=== PATIENT | male | born 1950 | race Caucasian/White ===

== ENCOUNTER 2017-05-09 21:25 | Inpatient (IN) | payer MEDICARE ==
[~2017-05-09] VITALS: Ht 172.7 cm; Wt 81.8 kg
[2017-05-09] MEDS ORDERED: SODIUM CHLORIDE 0.9% 1L BAG IV* STA (22:20)
--- NOTE | 2017-05-09 22:24 | ERA ---
ER Documentation Chief Complaint Date/Time DATE: 05/09/17 TIME: 22:21 Chief Complaint FEVER WITH CHILLS, DENIES AP OR CP HPI Patient is a 66-year-old male who presents with sudden onset, constant, moderate chills for the last 1-1/2 hours. He reports having mild headache, mild sore throat, and nonproductive cough for the last 2 days. He denies neck stiffness, abdominal pain, dysuria. He denies back pain. He reports mild shortness of breath. ROS All systems reviewed and are negative except as per history of present illness. 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 Social history:Smokes tobacco, denies alcohol History of Surgery: Yes (AAA Repair,L Leg Amputation) Anesthesia Reaction: No Hx Neurological Disorder: No Hx Respiratory Disorders: No Hx Cardiac Disorders: Yes (HTN,AAA) Hx Psychiatric Problems: No Hx Miscellaneous Medical Probl: Yes (DM,Acute Renal Failure) Hx Alcohol Use: No Hx Substance Use: No Hx Tobacco Use: Yes (3-4 sticks/day) Smoking Status: Current every day smoker FmHx Family History: No coronary disease, No diabetes Physical Exam Vitals Vital Signs Date Time Temp Pulse Resp B/P Pulse Ox O2 Delivery O2 Flow Rate FiO2 05/10/17 01:32 95 17 107/71 95 Nasal Cannula 2.0 05/09/17 23:38 Nasal Cannula 2 05/09/17 22:45 Nasal Cannula 2 05/09/17 21:28 100.5 92 22 142/82 98 Physical Exam Const: Alert, no acute distress Head: Atraumatic Eyes: Normal Conjunctiva no pallor, no icterus ENT: Normal External Ears, Nose and Mouth. Mucous membranes Neck: Full range of motion. No meningismus. Resp: Clear to auscultation bilaterally trace rales at left base, no wheeze mild tachypnea Cardio: Tachycardia, regular rhythm, no murmurs Abd: Soft, non tender, non distended. Skin: No petechiae or rashes Back: No midline or flank tenderness Ext: No cyanosis, plus edema right yi, amputation of left leg Neur: Awake and alert, cranial nerves II through XII intact bilaterally, strength and sensation full in 4 extremities. Psych: Normal Mood and Affect Result Diagram: 05/09/175 05/09/17 2215 Results 24 hrs Laboratory Tests Test 05/09/17 22:15 05/09/17 23:15 05/10/17 00:13 White Blood Count 11.110^3/ul Red Blood Count 3.9610^6/ul Hemoglobin 12.1g/dl Hematocrit 37.8% Mean Corpuscular Volume 95.5fl Mean Corpuscular Hemoglobin 30.6pg Mean Corpuscular Hemoglobin Concent 32.0g/dl Red Cell Distribution Width 13.5% Platelet Count 80107^3/UL Mean Platelet Volume 10.7fl Neutrophils % % Segmented Neutrophils % (Manual) 96% Lymphocytes % % Lymphocytes % (Manual) 4% Monocytes % % Eosinophils % % Basophils % % Nucleated Red Blood Cells % 0.0/100WBC Neutrophils # 10^3/ul Absolute Lymphocytes (Manual) 0.410^3/ul Lymphocytes # 10^3/ul Monocytes # 10^3/ul Eosinophils # 10^3/ul Basophils # 10^3/ul Nucleated Red Blood Cells # 10^3/ul Platelet Estimate NORMAL Prothrombin Time 12.9Sec Prothrombin Time Ratio 1.0 INR International Normalized Ratio 0.97 Activated Partial Thromboplast Time 33.8Sec Sodium Level 141mmol/L Potassium Level 3.9mmol/L Chloride Level 109mmol/L Carbon Dioxide Level 22mmol/L Anion Gap 14 Blood Urea Nitrogen 40mg/dl Creatinine 2.44mg/dl Glucose Level 176mg/dl Lactic Acid Level 2.5mmol/L 0.9mmol/L Calcium Level 9.0mg/dl Total Bilirubin 0.2mg/dl Direct Bilirubin 0.00mg/dl Indirect Bilirubin 0.2mg/dl Aspartate Amino Transf (AST/SGOT) 22IU/L Alanine Aminotransferase (ALT/SGPT) 22IU/L Alkaline Phosphatase 102IU/L Troponin I 0.126ng/ml B-Type Natriuretic Peptide 483PG/ML Total Protein 7.9g/dl Albumin 4.0g/dl Globulin 3.90g/dl Albumin/Globulin Ratio 1.02 Urine Color YELLOW Urine Clarity SLIGHTLY CLOUDY Urine pH 5.0 Urine Specific [place] 1.013 Urine Ketones NEGATIVEmg/dL Urine Nitrite NEGATIVEmg/dL Urine Bilirubin NEGATIVEmg/dL Urine Urobilinogen NEGATIVEmg/dL Urine Leukocyte Esterase NEGATIVELeu/ul Urine Microscopic RBC > 182/HPF Urine Microscopic WBC 3/HPF Urine Hemoglobin 3+mg/dL Urine Glucose NEGATIVEmg/dL Urine Total Protein 2+mg/dl Current Medications Medications (Trade) Dose Ordered Sig/Dimitrios Route PRN Reason Start Time Stop Time Status Last Admin Dose Admin Sodium Chloride 2540 ml 2,540 ml BOLUS OVER 2 HOURS STAT IV* 05/09/17 22:20 05/09/17 22:21 DC 05/09/17 23:00 Levofloxacin/ Dextrose (Levaquin 750 Mg/ D5W 150 ml (Pmx)) 150 ml @ 100 mls/hr ONCE ONCE IVPB 05/09/17 22:30 05/09/17 23:59 DC 05/09/17 22:30 Aspirin (Aspirin) 162 mg ONCE ONCE PO 05/10/17 01:00 05/10/17 01:01 DC 05/10/17 01:09 Procedures/MDM EKG read by me: Time 2237, rate 118 Rhythm: Sinus tachycardia [place]: Left axis deviation, left anterior fascicular block Intervals: Normal ST-T waves: no ischemic changes Ectopy: No Q-waves: Anterior Q waves Impression: Sinus tachycardia with LAFB and evidence of prior anterior NV, no ischemia Sepsis MDM: Patient is a 66-year-old male who presents to the ER with acute onset of rigors and fever. He has mild respiratory symptoms but no infiltrate on chest x-ray. An influenza swab was sent. He has tachycardia, leukocytosis, and slightly elevated lactic acid suggestive of sepsis. He has renal insufficiency of unknown duration. I cannot exclude the possibility of acute kidney injury due to sepsis. He has mildly elevated troponin but no chest pain. The patient has known underlying coronary artery disease. There are no ischemic changes on EKG, but his EKG is suggestive of prior NV which is consistent with the patient's history. I suspect that his elevated troponin is related to underlying sepsis and renal insufficiency. The patient was given broad-spectrum antibiotics and IV fluids. Cultures were sent. On exam there are no findings suggestive of source except for trace rales at the left base of the lungs. There are no meningeal signs, no signs of soft tissue infection. Urinalysis was negative. The patient will be admitted for further infectious, renal and cardiac workup. He was given a dose of aspirin. Departure Diagnosis: Primary Impression: Sepsis Qualified Code: A41.9 - Sepsis, due to unspecified organism Additional Impressions: Elevated troponin Hypoxia Acute kidney injury Condition: MADAY Sherman MD May 09, 2017 22:24
[2017-05-09] MEDS ORDERED: LEVOFLOXACIN 750MG/D5W (PMX) 150 ML IVPB ONE (22:30)
[2017-05-09 22:47] LABS: ABNORMAL IP MESSAGE 1; HEMATOCRIT 37.8 % (42.0-52.0); HEMOGLOBIN 12.1 g/dl (14.0-18.0); MEAN CORPUSCULAR HEMOGLOBIN 30.6 pg (29.0-33.0); MEAN CORPUSCULAR VOLUME 95.5 fl (82.0-101.0); MEAN PLATELET VOLUME 10.7 fl (7.4-10.4); PLATELET COUNT 172 10^3/UL (140-415); POSITIVE DIFF @See below; RED BLOOD COUNT 3.96 10^6/ul (4.70-6.10); RED CELL DISTRIBUTION WIDTH 13.5 % (11.5-14.5); WHITE BLOOD COUNT 11.1 10^3/ul (4.8-10.8)
[2017-05-09 22:57] LABS: INR 0.97; PROTIME 12.9 Sec (12.2-14.2)
[2017-05-09 22:58] LABS: PARTIAL THROMBOPLASTIN TIME 33.8 Sec (25.0-35.0)
[2017-05-09 22:59] LABS: ALBUMIN/GLOBULIN RATIO 1.02; BILIRUBIN,INDIRECT 0.2 mg/dl (0-1.1); BILIRUBIN,TOTAL 0.2 mg/dl (0.2-1.3); CREATININE 2.44 mg/dl (0.61-1.24); POTASSIUM 3.9 mmol/L (3.5-5.1); TOTAL PROTEIN 7.9 g/dl (6.1-8.1)
[2017-05-09 23:09] LABS: PLATELET ESTIMATE NORMAL
--- NOTE | 2017-05-09 23:11 | RADRPT ---
PROCEDURE: Portable chest x-ray. CLINICAL INDICATION: 66 years of age, male. Possible sepsis.. TECHNIQUE: Portable AP view of the chest. COMPARISON: None available. FINDINGS: Atherosclerotic calcification and tortuosity of the thoracic aorta. Normal heart size. Mediastinal c ontours are otherwise normal. Decreased lung volumes with bibasilar atelectasis. Negative for evidence of focal lung consolidation . Negative for pleural effusion or pneumothorax. No acute bony abnormality. IMPRESSION: Negative for evidence of an acute chest process. Negative for focal lung consolidation. RPTAT: HCTS Physician Miky Date Time Electronically viewed and signed by Physician Miky on 05/09/2017 23:10 CS/
[2017-05-09 23:20] LABS: TROPONIN-I 0.126 ng/ml (0.00-0.12)
[2017-05-09 23:55] LABS: ADD UMIC YES; UR ASCORBIC ACID NEGATIVE (NEGATIVE); UR BILIRUBIN (Dip) NEGATIVE (NEGATIVE); UR BLOOD (Dip) 3+ mg/dL (NEGATIVE); UR CLARITY SLIGHTLY CLOUDY (CLEAR); UR COLOR YELLOW (YELLOW); UR GLUCOSE (Dip) NEGATIVE (NEGATIVE); UR KETONES (Dip) NEGATIVE (NEGATIVE); UR LEUKOCYTE ESTERASE (Dip) NEGATIVE Leu/ul (NEGATIVE); UR NITRITE (Dip) NEGATIVE (NEGATIVE); UR RBC > 182 /HPF (0-5); UR SPECIFIC GRAVITY (Dip) 1.013 (1.003-1.030); UR TOTAL PROTEIN (Dip) 2+ mg/dl (NEGATIVE); UR UROBILINOGEN (Dip) NEGATIVE (NEGATIVE)
[2017-05-10] VITALS (12 sets, daily range): BP systolic 95–143; BP diastolic 60–81; PULSE 74–86; RESP 18–20; TEMP 97.9; Ht 172.7 cm; Wt 81.8 kg
[2017-05-10] MEDS ORDERED: ASPIRIN 81 MG TAB PO ONE (01:00)
[2017-05-10] MEDS ORDERED: BISACODYL (EC) 5 MG TAB PO PRN (03:00)
[2017-05-10] MEDS ORDERED: morphine 2 MG INJ IV PRN (03:00)
[2017-05-10] MEDS ORDERED: ONDANSETRON 4 MG INJ IV PRN (03:00)
[2017-05-10] MEDS ORDERED: DOCUSATE SODIUM 100 MG CAP PO PRN (03:00)
[2017-05-10] MEDS ORDERED: ACETAMINOPHEN 325 MG TAB PO PRN (03:00)
[2017-05-10] MEDS ORDERED: NACL 0.9% 3 ML SYG IV SCH (03:00)
[2017-05-10 03:44] LABS: CK-MB 1.18 ng/ml (0.0-2.4); TROPONIN-I 0.932 ng/ml (0.00-0.12)
[2017-05-10] MEDS: SOD CHLORIDE 0.9% 1,000 ML IV SCH (05:12)
--- NOTE | 2017-05-10 08:03 | HP ---
Date/Time of Note Date/Time of Note DATE: 05/10/17 TIME: 07:33 Assessment/Plan VTE Prophylaxis VTE Prophylaxis Intervention: SCD's Lines/Catheters IV [facility]ter Type (from [facility]): Peripheral IV Urinary Cath still in place: No Assessment/Plan Chief Complaint/Hosp Course This is a 66-year-old male being admitted to the telemetry floor for: #1 sepsis: Suspected respiratory source. Current time chest x-ray is normal. Started on Levaquin in the ED. Will continue Levaquin. Will await urine and blood cultures. Chest x-ray was within normal values. Continue to monitor for fevers. IV fluid hydration and monitor blood pressure for hypotension. Will check a respiratory viral panel rapid strep #2 elevated troponins: Possibly secondary to underlying chronic kidney disease versus demand ischemia versus cardiac etiology. Patient denies any chest pain at this time. Will trend troponins. If troponins rise will order echocardiogram. EKG at this time does not show any signs of any acute ischemia. Patient is chest pain-free. Will check hemoglobin A1c and lipid. #3 coronary artery disease: Patient has a history of KS in the past and cardiac stents. will need to confirm patient's home medications. #4 Lactic acidosis: Likely secondary to underlying infection. Currently on antibiotics. Will do IV fluid hydration monitor serial lactate #5 chronic kidney disease: We do not have a previous creatinine. At the current time patient is nonoliguric. Will provide IV fluid hydration and monitor kidney function. Will check urine microalbumin. #6 DVT and GI prophylaxis: SCDs, acid ori further treatment strategy will be implemented as per the clinical course Will need to confirm patient's home medications with him in the a.m. Problems: HPI/ROS Admit Date/Time Admit Date/Time May 10, 2017 at 02:45 Hx of Present Illness Chief complaint: Rigors and chills, cough Patient is a 66-year-old male who presents with sudden onset, constant, moderate chills for the last 1-1/2 hours. He reports having mild headache, mild sore throat, and nonproductive cough for the last 2 days. He denies neck stiffness, abdominal pain, dysuria. He denies back pain. He reports mild shortness of breath. Patient denies any chest pain. Allergies: Ampicillin Medications: See [place] [place] Const: As per HPI Eyes : No pain discharge or redness or change in visual acuity ENT: As per HPI Respiratory: As per HPI Cardiovascular: No chest pain, palpitation, PND, or edema GI : no change in appetite, abdominal pain, nausea, vomiting, diarrhea, constipation, or change in the color his stool Genitourinary: No dysuria, hematuria, flank pain , discharge or CVA tenderness Musculoskeletal: No joint pain, back pain, neck pain, restricted range of motion in neck or joints Skin: No rash, bruising or hives Neuro: No headache, dizziness, syncope, seizure, focal weakness Endocrine: No polyuria, polydipsia, temperature intolerance Psych: No hallucination, depression, anxiety or suicidal ideation PMH/Family/Social Past Medical History History of abdominal aortic aneurysm, hypertension, [place], coronary artery disease , embolization of clot from AAA to left leg resulting in him needing left leg amputation Past Surgical History AAA repair, left leg amputation secondary to embolize clot, cardiac stents 4 Family History Significant Family History: hypertension (Family was repeated E came in his ago with a blood level [place] and low blood) Social History Smoking Status: Current every day smoker Exam/Review of Systems Vital Signs Vitals Vital Signs Date Time Temp Pulse Resp B/P Pulse Ox O2 Delivery O2 Flow Rate FiO2 05/10/17 04:49 85 05/10/17 03:38 98.2 20 95/60 96 Nasal Cannula 2.0 Intake and Output 05/09/17 05/09/17 05/10/17 15:00 23:00 07:00 Intake Total 200 ml Balance 200 ml Exam Exam General: Patient is well-developed well-nourished The patient is alert oriented -3 lying comfortably in bed. HEENT: Atraumatic, normocephalic. The pupils are equal, round and reactive. Extraocular motor are intact Neck: Supple with full range of motion. No rigidity or meningismus Chest: Nontender Lungs: Clear to auscultation bilaterally, dry cough Heart: Normal S1-S2, Regular rhythm and rate. No murmur, S3, or S4 Abdomen: Soft , nontender, nondistended , bowel sounds are present. No guarding no rebound tenderness , No masses or organomegaly. 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 CLINICAL INDICATION: 66 years of age, male. Possible sepsis.. TECHNIQUE: Portable AP view of the chest. COMPARISON: None available. FINDINGS: Atherosclerotic calcification and tortuosity of the thoracic aorta. Normal heart size. Mediastinal contours are otherwise normal. Decreased lung volumes with bibasilar atelectasis. Negative for evidence of focal lung consolidation. Negative for pleural effusion or pneumothorax. No acute bony abnormality. IMPRESSION: Negative for evidence of an acute chest process. Negative for focal lung consolidation. RPTAT: HCTS Physician Miky Date Time Electronically viewed and signed by Physician Miky on 05/09/2017 23: 10 CS/ CC: MADAY SOMMERS MD EKG Rhythm: Sinus tachycardia [place]: Left axis deviation, left anterior fascicular block Intervals: Normal ST-T waves: no ischemic changes Ectopy: No Q-waves: Anterior Q waves Impression: Sinus tachycardia with LAFB and evidence of prior anterior KS, no ischemia As per ED physician documentation Labs Result Diagram: 05/09/17221405/09/172214 Medications Medications Current Medications Sodium Chloride (NS) 1,000 ml @ 50 mls/hr Q20H IV Last administered on t 05:12; Admin Dose 50 MLS/HR; Start 05/10/17 at 02:38 Ondansetron HCl (Zofran Inj) 4 mg Q6H PRN IV NAUSEA AND/OR VOMITING; Start at 03:00 Acetaminophen (Tylenol Tab) 650 mg Q6H PRN PO PAIN LEVEL 1-3 OR FEVER; Start at 03:00 Morphine Sulfate (morphine) 2 mg Q4H PRN IV PAIN LEVEL 7-10; Start 05/10/17 at 03:00 Docusate Sodium (Colace) 100 mg Q12H PRN PO CONSTIPATION; Start 05/10/17 at 03: 00 Bisacodyl (Dulcolax) 5 mg DAILY PRN PO CONSTIPATION; Start 05/10/17 at 03:00 Famotidine (Pepcid) 20 mg DAILY PO ; Start 05/10/17 at 09:00 SARA PATINO May 10, 2017 07:46
[2017-05-10] MEDS ORDERED: FAMOTIDINE 20 MG TAB PO SCH ×2 (09:00→21:30)
[2017-05-10 09:28] LABS: CK-MB 2.35 ng/ml (0.0-2.4); TROPONIN-I 1.24 ng/ml (0.00-0.12)
[2017-05-10] MEDS ORDERED: HYDR-3672 PO (11:32)
[2017-05-10] MEDS ORDERED: AMLO-145 PO (11:32)
[2017-05-10] MEDS ORDERED: CARV25TA79 PO (11:32)
[2017-05-10] MEDS ORDERED: ASPI81TA3 PO ×2 (11:32→11:35)
[2017-05-10] MEDS ORDERED: LINA5TAB PO (11:32)
[2017-05-10] MEDS ORDERED: ATOR10TA65 PO (11:32)
[2017-05-10] MEDS ORDERED: PANT40SU PO (11:32)
[2017-05-10] MEDS ORDERED: GABA100C14 PO (11:35)
[2017-05-10] MEDS: GUAIFENESIN/DM 5ML CUP PO PRN ×3 (13:59→23:54)
--- NOTE | 2017-05-10 15:16 | CONS ---
Date/Time of Note Date/Time of Note DATE: 05/10/17 TIME: 14:53 Consultation Date/Type/Reason Admit Date/Time May 10, 2017 at 02:45 Hx of Present Illness Admit Date/Time Admit Date/Time May 10, 2017 at 02:45 Hx of Present Illness Chief complaint : Rigors and chills, cough Patient is a 66-year-old male who presents with sudden onset, constant, moderate chills for the last 1-1/2 hours. He reports having mild headache, mild sore throat, and nonproductive cough for the last 2 days. He denies neck stiffness, abdominal pain, dysuria. He denies back pain. He reports mild shortness of breath. Patient denies any chest pain. Allergies: Ampicillin Medications: See [place]ID [place]IVER Constitutional: As per HPI Eyes : No pain discharge or redness or change in visual acuity ENT: As per HPI Respiratory: As per HPI Cardiovascular: No chest pain, palpitation, PND, or edema GI : no change in appetite, abdominal pain, nausea, vomiting, diarrhea, constipation, or change in the color his stool Genitourinary: No dysuria, hematuria, flank pain , discharge or CVA tenderness Musculoskeletal: No joint pain, back pain, neck pain, restricted range of motion in neck or joints Skin: No rash, bruising or hives Neuro: No headache, dizziness, syncope, seizure, focal weakness Endocrine: No polyuria, polydipsia, temperature intolerance Psych: No hallucination, depression, anxiety or suicidal ideation PMH/Family/Social Past Medical History History of abdominal aortic aneurysm, hypertension, [place], coronary artery disease , embolization of clot from AAA to left leg resulting in ischemia and left leg amputation. Past Surgical History AAA repair, left leg amputation secondary to embolized clot, coronary stents 4. Family History Significant Family History: hypertension Social History Smoking Status: Current every day smoker Exam/Review of Systems Vital Signs Vitals Vital Signs Date Time Temp Pulse Resp B/P Pulse Ox O2 Delivery O2 Flow Rate FiO2 05/10/17 04:49 85 05/10/17 03:38 98.2 20 95/60 96 Nasal Cannula 2.0 Intake and Output 05/09/17 05/09/17 05/10/17 15:00 23:00 07:00 Intake Total 200 ml Balance 200 ml Exam Exam General: Patient is well-developed well-nourished The patient is alert and oriented times 3 lying uncomfortably in bed with mild shivering, sensation of "cold". HEENT: Atraumatic, normocephalic. The pupils are equal, round and reactive. Extraocular motor are intact Neck: Supple with full range of motion. No rigidity or meningismus Chest: Symmetric, Nontender Lungs: Clear to auscultation bilaterally, dry cough Heart: Normal S1-S2, Regular rhythm and rate. No murmur, S3, or S4 Abdomen: Soft , nontender, nondistended , bowel sounds are present. No guarding no rebound tenderness , No masses or organomegaly. 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 Normal heart size. Mediastinal contours are otherwise normal. Decreased lung volumes with bibasilar atelectasis. Negative for evidence of focal lung consolidation. Negative for pleural effusion or pneumothorax. No acute bony abnormality. IMPRESSION: Negative for evidence of an acute chest process. Negative for focal lung consolidation. RPTAT: HCTS EKG Rhythm: Sinus tachycardia [place]: Left axis deviation, left anterior fascicular block Intervals: Normal ST-T waves: no ischemic changes Ectopy: No Q-waves: Anterior Q waves Impression: Sinus tachycardia with LAFB and evidence of prior anterior AR, no ischemia As per ED physician documentation Labs Result Diagram: 05/09/17221405/09/172214 Medications Medications Current Medications Sodium Chloride (NS) 1,000 ml @ 50 mls/hr Q20H IV Last administered on t 05:12; Admin Dose 50 MLS/HR; Start 05/10/17 at 02:38 Ondansetron HCl (Zofran Inj) 4 mg Q6H PRN IV NAUSEA AND/OR VOMITING; Start at 03:00 Acetaminophen (Tylenol Tab) 650 mg Q6H PRN PO PAIN LEVEL 1-3 OR FEVER; Start at 03:00 Morphine Sulfate (morphine) 2 mg Q4H PRN IV PAIN LEVEL 7-10; Start 05/10/17 at 03:00 Docusate Sodium (Colace) 100 mg Q12H PRN PO CONSTIPATION; Start 05/10/17 at 03: 00 Bisacodyl (Dulcolax) 5 mg DAILY PRN PO CONSTIPATION; Start 05/10/17 at 03:00 Famotidine (Pepcid) 20 mg DAILY PO ; Start 05/10/17 at 09:00 Impression: Mildly abnormal troponin can be encountered in the context of several non cardiac acute conditions, including sepsis. EKG and symptoms do not support an acute cardiac diagnosis at this time. Thank you for allowing me to consult on this patient. I will follow up. DUANE ANAYA MD Social History Smoking Status: Current every day smoker Exam/Review of Systems Vital Signs Vitals Vital Signs Date Time Temp Pulse Resp B/P Pulse Ox O2 Delivery O2 Flow Rate FiO2 05/10/17 12:00 77 05/10/17 11:48 97.7 18 143/79 93 05/10/17 08:00 Nasal Cannula 2.0 Intake and Output 05/09/17 05/09/17 05/10/17 15:00 23:00 07:00 Intake Total 200 ml Balance 200 ml Results Result Diagram: 05/09/17 2215 05/09/17 2215 Results 24 hrs Laboratory Tests Test 05/09/17 22:15 05/09/17 23:15 05/10/17 00:13 05/10/17 02:34 White Blood Count 11.1 H Red Blood Count 3.96 L Hemoglobin 12.1 L Hematocrit 37.8 L Mean Corpuscular Volume 95.5 Mean Corpuscular Hemoglobin 30.6 Mean Corpuscular Hemoglobin Concent 32.0 Red Cell Distribution Width 13.5 Platelet Count 172 Mean Platelet Volume 10.7 H Neutrophils % Segmented Neutrophils % (Manual) 96 H Lymphocytes % Lymphocytes % (Manual) 4 L Monocytes % Eosinophils % Basophils % Nucleated Red Blood Cells % 0.0 Neutrophils # Absolute Lymphocytes (Manual) 0.4 L Lymphocytes # Monocytes # Eosinophils # Basophils # Nucleated Red Blood Cells # Platelet Estimate NORMAL Prothrombin Time 12.9 Prothrombin Time Ratio 1.0 INR International Normalized Ratio 0.97 Activated Partial Thromboplast Time 33.8 Sodium Level 141 Potassium Level 3.9 Chloride Level 109 Carbon Dioxide Level 22 Anion Gap 14 Blood Urea Nitrogen 40 H Creatinine 2.44 H Glucose Level 176 Lactic Acid Level 2.5 *H 0.9 0.6 Calcium Level 9.0 Total Bilirubin 0.2 Direct Bilirubin 0.00 Indirect Bilirubin 0.2 Aspartate Amino Transf (AST/SGOT) 22 Alanine Aminotransferase (ALT/SGPT) 22 Alkaline Phosphatase 102 Troponin I 0.126 *H 0.932 *H B-Type Natriuretic Peptide 483 H Total Protein 7.9 Albumin 4.0 Globulin 3.90 H Albumin/Globulin Ratio 1.02 Urine Color YELLOW Urine Clarity SLIGHTLY CLOUDY A Urine pH 5.0 Urine Specific [place] 1.013 Urine Ketones NEGATIVE Urine Nitrite NEGATIVE Urine Bilirubin NEGATIVE Urine Urobilinogen NEGATIVE Urine Leukocyte Esterase NEGATIVE Urine Microscopic RBC > 182 H Urine Microscopic WBC 3 Urine Hemoglobin 3+ H Urine Glucose NEGATIVE Urine Total Protein 2+ H Creatine Kinase 60 Creatine Kinase Index 2.0 Creatinine Kinase MB (Mass) 1.18 Test 05/10/17 08:32 Erythrocyte Sedimentation Rate 47 H Creatine Kinase 79 Creatine Kinase Index 3.0 Creatinine Kinase MB (Mass) 2.35 Troponin I 1.240 *H C-Reactive Protein 6.0 H Medications Medications Current Medications Sodium Chloride (NS) 1,000 ml @ 50 mls/hr Q20H IV Last administered on 05:12; Admin Dose 50 MLS/HR; Start 05/10/17 at 02:38 Ondansetron HCl (Zofran Inj) 4 mg Q6H PRN IV NAUSEA AND/OR VOMITING; Start at 03:00 Acetaminophen (Tylenol Tab) 650 mg Q6H PRN PO PAIN LEVEL 1-3 OR FEVER; Start at 03:00 Morphine Sulfate (morphine) 2 mg Q4H PRN IV PAIN LEVEL 7-10; Start 05/10/17 at 03:00 Docusate Sodium (Colace) 100 mg Q12H PRN PO CONSTIPATION; Start 05/10/17 at 03: 00 Bisacodyl (Dulcolax) 5 mg DAILY PRN PO CONSTIPATION; Start 05/10/17 at 03:00 Famotidine 20 mg 20 mg DAILY PO Last administered on 05/10/17 09:16; Admin Dose 20 MG; Start 05/10/17 at 09:00 Levofloxacin/ Dextrose (Levaquin 750 Mg/ D5W 150 ml (Pmx)) 150 ml @ 100 mls/hr Q48H IVPB ; Start 05/11/17 at 22:00 Guaifenesin/ Dextromethorphan (Robitussin Dm Liquid Cup) 5 ml Q4H PRN PO COUGH Last administered on 05/10/17t 13:59; Admin Dose 5 ML; Start 05/10/17 at 13:30 DUANE ANAYA MD May 10, 2017 15:11
[2017-05-10] MEDS ORDERED: DEXTROSE 50% 50 ML SYRINGE IV PRN ×2 (16:30)
[2017-05-10] MEDS ORDERED: GLUCOSE GEL 15 GRAM TUBE PO PRN ×2 (16:30)
[2017-05-10] MEDS ORDERED: GLUCAGON 1 MG INJ IM PRN (16:30)
[2017-05-10] MEDS ORDERED: GLUCOSE GEL 15 GRAM TUBE BUCCAL PRN (16:30)
--- NOTE | 2017-05-10 17:02 | CONS ---
Date/Time of Note Date/Time of Note DATE: 05/10/17 TIME: 17:01 Assessment/Plan Assessment/Plan Additional Assessment/Plan 1. HARJINDER on CKD due to Sepsis and Cardiorenal syndrome 2. H/o CKD III 3. Chest pain with elevated troponin 4. Coronary artery disease 5. Hypertension Plan : continue current care Expecting Cr improvement with IVF NS at 50 cc/hr Continue IV levaquin to cover for infection, Renally dose all abx pt revisously has a a CKD work up so need for work up at this time will follow up Consultation Date/Type/Reason Admit Date/Time May 10, 2017 at 02:45 Date of Consultation: May 10, 2017 Type of Consultation: NEPHROLOGY Reason for Consultation acute on chronic renal failure, admitted with NSTEMI Referring Provider: CAROLINE KILLIAN NP Hx of Present Illness 66-year-old male who presents with sudden onset, constant, moderate chills for the last 1-1/2 hours. He reports having mild headache, mild sore throat, and nonproductive cough for the last 2 days. He denies neck stiffness, abdominal pain, dysuria. He denies back pain. He reports mild shortness of breath. Patient denies any chest pain.he was noted to have Cr 2.44. Renal has been consulted for Acute on chronic renal failure, Constitutional: no complaints Eyes: no complaints ENT: no complaints Respiratory: cough, pleuritic pain, shortness of breath Cardiovascular: no complaints Gastrointestinal: no complaints Genitourinary: no complaints Musculoskeletal: no complaints Skin: no complaints Neurologic: no complaints Endocrine: no complaints Lymphatic: no complaints Psychological: no complaints Immunologic: no complaints Past Medical History Medical History: hypertension, other (PVD , abdominal aortic aneurysm ) Past Surgical History Past Surgical Hx: other (left below knee amputation ) Family History Significant Family History: no pertinent family hx Social History Alcohol Use: none Smoking Status: Current every day smoker Drug Use: none Exam/Review of Systems Vital Signs Vitals Vital Signs Date Time Temp Pulse Resp B/P Pulse Ox O2 Delivery O2 Flow Rate FiO2 05/10/17 16:07 79 131/75 05/10/17 15:46 98.6 20 96 05/10/17 08:00 Nasal Cannula 2.0 Intake and Output 05/09/17 05/09/17 05/10/17 15:00 23:00 07:00 Intake Total 200 ml Balance 200 ml Exam Constitutional: alert Psych: no complaints Head: normocephalic Eyes: nl conjunctiva ENMT: nl external ears & nose Neck: non-tender, supple Respiratory: clear to auscultation, crackles/rales, diminished breath sounds Cardiovascular: nl pulses, regular rate and rhythm Gastrointestinal: nl liver, spleen, non-tender, soft Musculoskeletal: joint tenderness, swelling Neurological: INTEGRATED CIRCUIT FABRICATOR II-XII intact, nl mental status, nl speech Skin: nl turgor Results Result Diagram: 05/09/17 2215 05/09/17 2215 Results 24 hrs Laboratory Tests Test 05/09/17 22:15 05/09/17 23:15 05/10/17 00:13 05/10/17 02:34 White Blood Count 11.1 H Red Blood Count 3.96 L Hemoglobin 12.1 L Hematocrit 37.8 L Mean Corpuscular Volume 95.5 Mean Corpuscular Hemoglobin 30.6 Mean Corpuscular Hemoglobin Concent 32.0 Red Cell Distribution Width 13.5 Platelet Count 172 Mean Platelet Volume 10.7 H Neutrophils % Segmented Neutrophils % (Manual) 96 H Lymphocytes % Lymphocytes % (Manual) 4 L Monocytes % Eosinophils % Basophils % Nucleated Red Blood Cells % 0.0 Neutrophils # Absolute Lymphocytes (Manual) 0.4 L Lymphocytes # Monocytes # Eosinophils # Basophils # Nucleated Red Blood Cells # Platelet Estimate NORMAL Prothrombin Time 12.9 Prothrombin Time Ratio 1.0 INR International Normalized Ratio 0.97 Activated Partial Thromboplast Time 33.8 Sodium Level 141 Potassium Level 3.9 Chloride Level 109 Carbon Dioxide Level 22 Anion Gap 14 Blood Urea Nitrogen 40 H Creatinine 2.44 H Glucose Level 176 Lactic Acid Level 2.5 *H 0.9 0.6 Calcium Level 9.0 Total Bilirubin 0.2 Direct Bilirubin 0.00 Indirect Bilirubin 0.2 Aspartate Amino Transf (AST/SGOT) 22 Alanine Aminotransferase (ALT/SGPT) 22 Alkaline Phosphatase 102 Troponin I 0.126 *H 0.932 *H B-Type Natriuretic Peptide 483 H Total Protein 7.9 Albumin 4.0 Globulin 3.90 H Albumin/Globulin Ratio 1.02 Urine Color YELLOW Urine Clarity SLIGHTLY CLOUDY A Urine pH 5.0 Urine Specific [place] 1.013 Urine Ketones NEGATIVE Urine Nitrite NEGATIVE Urine Bilirubin NEGATIVE Urine Urobilinogen NEGATIVE Urine Leukocyte Esterase NEGATIVE Urine Microscopic RBC > 182 H Urine Microscopic WBC 3 Urine Hemoglobin 3+ H Urine Glucose NEGATIVE Urine Total Protein 2+ H Creatine Kinase 60 Creatine Kinase Index 2.0 Creatinine Kinase MB (Mass) 1.18 Test 05/10/17 08:32 Erythrocyte Sedimentation Rate 47 H Creatine Kinase 79 Creatine Kinase Index 3.0 Creatinine Kinase MB (Mass) 2.35 Troponin I 1.240 *H C-Reactive Protein 6.0 H Medications Medications Current Medications Sodium Chloride (NS) 1,000 ml @ 50 mls/hr Q20H IV Last administered on 05:12; Admin Dose 50 MLS/HR; Start 05/10/17 at 02:38 Ondansetron HCl (Zofran Inj) 4 mg Q6H PRN IV NAUSEA AND/OR VOMITING; Start at 03:00 Acetaminophen (Tylenol Tab) 650 mg Q6H PRN PO PAIN LEVEL 1-3 OR FEVER; Start at 03:00 Morphine Sulfate (morphine) 2 mg Q4H PRN IV PAIN LEVEL 7-10; Start 05/10/17 at 03:00 Docusate Sodium (Colace) 100 mg Q12H PRN PO CONSTIPATION; Start 05/10/17 at 03: 00 Bisacodyl (Dulcolax) 5 mg DAILY PRN PO CONSTIPATION; Start 05/10/17 at 03:00 Famotidine 20 mg 20 mg DAILY PO Last administered on 05/10/17 09:16; Admin Dose 20 MG; Start 05/10/17 at 09:00 Levofloxacin/ Dextrose (Levaquin 750 Mg/ D5W 150 ml (Pmx)) 150 ml @ 100 mls/hr Q48H IVPB ; Start 05/11/17 at 22:00 Guaifenesin/ Dextromethorphan (Robitussin Dm Liquid Cup) 5 ml Q4H PRN PO COUGH Last administered on 05/10/17 13:59; Admin Dose 5 ML; Start 05/10/17 at 13:30 Heparin Sodium (Porcine) (Heparin (5000 Units/0.5 ml)) 5,000 unit Q8 SC ; Start 05/10/17 at 22:00 Amlodipine Besylate (Norvasc) 5 mg DAILY PO ; Start 05/11/17 at 09:00 Aspirin (Aspirin) 81 mg DAILY PO ; Start 05/11/17 at 09:00 Atorvastatin Calcium (Lipitor) 10 mg QHS PO ; Start 05/10/17 at 21:00 Carvedilol (Coreg) 25 mg BID PO ; Start 05/10/17 at 21:00 Gabapentin (Neurontin) 100 mg QHS PO ; Start 05/10/17 at 21:00 Hydralazine HCl (Apresoline) 50 mg Q8 PO ; Start 05/10/17 at 22:00 Linagliptin (Tradjenta) 5 mg DAILY PO ; Start 05/11/17 at 09:00 Diagnostic Test (Pha) (Accu-Chek) 1 ea 02 XX ; Start 05/11/17 at 02:00 Insulin Glargine (Lantus) 12 unit DAILY@08 SC ; Start 05/11/17 at 08:00 Diagnostic Test (Pha) (Accu-Chek) 1 ea 02 XX ; Start 05/11/17 at 02:00 Miscellaneous Information 1 ea NOTE XX ; Start 05/10/17 at 16:30 Glucose (Glutose) 15 gm Q15M PRN PO DECREASED GLUCOSE; Start 05/10/17 at 16:30 Glucose (Glutose) 22.5 gm Q15M PRN PO DECREASED GLUCOSE; Start 05/10/17 at 16: 30 Dextrose (D50w Syringe) 25 ml Q15M PRN IV DECREASED GLUCOSE; Start 05/10/17 at 16:30 Dextrose (D50w Syringe) 50 ml Q15M PRN IV DECREASED GLUCOSE; Start 05/10/17 at 16:30 Glucagon (Glucagen) 1 mg Q15M PRN IM DECREASED GLUCOSE; Start 05/10/17 at 16:30 Glucose (Glutose) 15 gm Q15M PRN BUCCAL DECREASED GLUCOSE; Start 05/10/17 at 16 :30 PAULO CAROLINA MD May 10, 2017 17:02
[2017-05-10] MEDS: INSULIN ASPART [NOVOLOG] 3 ML PEN SC SCH ×3 (17:27→20:50)
[2017-05-10 18:04] LABS: CK-MB 1.86 ng/ml (0.0-2.4); TROPONIN-I 0.586 ng/ml (0.00-0.12)
[2017-05-10] MEDS: GABAPENTIN 100 MG CAP PO SCH (20:48)
[2017-05-10] MEDS: ATORVASTATIN 10 MG TAB PO SCH (20:48)
[2017-05-10] MEDS ORDERED: AL HYDROX/MG HYDROX/SIMETH 30 ML CUP PO PRN (21:00)
[2017-05-10] MEDS: HEPARIN 5,000 UNIT/0.5 ML VIAL SC SCH (21:14)
[2017-05-11] VITALS (13 sets, daily range): BP systolic 95–133; BP diastolic 54–81; PULSE 71–86; RESP 15–21
[2017-05-11] MEDS: SOD CHLORIDE 0.9% 1,000 ML IV SCH ×2 (01:19→17:32)
[2017-05-11] MEDS: ACCU-CHEK XX SCH ×2 (02:00)
[2017-05-11] MEDS: HEPARIN 5,000 UNIT/0.5 ML VIAL SC SCH ×3 (05:39→21:07)
[2017-05-11 07:14] LABS: BASOPHIL # 0.1 10^3/ul (0.0-0.1); BASOPHILS % 0.5 % (0.0-2.0); EOSINOPHILS # 0.1 10^3/ul (0.0-0.5); HEMATOCRIT 35.8 % (42.0-52.0); HEMOGLOBIN 11.1 g/dl (14.0-18.0); LYMPHOCYTES # 1.5 10^3/ul (0.8-2.9); LYMPHOCYTES % 14.1 % (15.0-51.0); MEAN CORPUSCULAR HEMOGLOBIN 29.7 pg (29.0-33.0); MEAN CORPUSCULAR VOLUME 95.7 fl (82.0-101.0); MEAN PLATELET VOLUME 11.6 fl (7.4-10.4); MONOCYTE # 1.3 10^3/ul (0.3-0.9); MONOCYTES % 12.2 % (0.0-11.0); NEUTROPHIL # 7.7 10^3/ul (1.6-7.5); NEUTROPHILS % 71.8 % (39.0-77.0); PLATELET COUNT 140 10^3/UL (140-415); POSITIVE DIFF @See below; RED BLOOD COUNT 3.74 10^6/ul (4.70-6.10); RED CELL DISTRIBUTION WIDTH 13.6 % (11.5-14.5); WHITE BLOOD COUNT 10.7 10^3/ul (4.8-10.8)
[2017-05-11 07:36] LABS: ALBUMIN 3.3 g/dl (3.3-4.9); ALBUMIN/GLOBULIN RATIO 0.94; BILIRUBIN,INDIRECT 0.1 mg/dl (0-1.1); BILIRUBIN,TOTAL 0.1 mg/dl (0.2-1.3); CALCIUM 8.9 mg/dl (8.4-10.2); CHOL/HDL RATIO 5.3 RATIO; CREATININE 2.19 mg/dl (0.61-1.24); MAGNESIUM 1.7 mg/dl (1.7-2.5); POTASSIUM 4.1 mmol/L (3.5-5.1); TOTAL PROTEIN 6.8 g/dl (6.1-8.1)
[2017-05-11] MEDS: INSULIN GLARGINE [LANtus] 3 ML PEN SC SCH (08:00)
[2017-05-11] MEDS: INSULIN ASPART [NOVOLOG] 3 ML PEN SC SCH ×7 (08:00→21:00)
[2017-05-11] MEDS: ASPIRIN 81 MG TAB PO SCH (08:23)
[2017-05-11] MEDS: AMLODIPINE 5 MG TAB PO SCH (08:24)
[2017-05-11] MEDS: FAMOTIDINE 20 MG TAB PO SCH (08:29)
[2017-05-11] MEDS: LINAGLIPTIN 5 MG TABLET PO SCH (08:30)
[2017-05-11 08:40] LABS: THYROID STIMULATING HORMONE 4.26 MIU/L (0.465-4.680)
--- NOTE | 2017-05-11 14:13 | RADRPT ---
Echocardiogram Report Patient Name: VANDANA SU Gender: Male Date: 1950 Study Date: 10-May-2017 Manager Dish: [facility] Location: 5540 Ref. Physician: SARA PATINO Quality: Adequate Procedures: Transthoracic echocardiogram with complete 2D, M-Mode, and doppler examination. Indications: Elevated Troponin. 2D/M Mode Doppler Measurement Value Normal Ranges Measurement Value Normal Ranges LVIDd 2D 4.9 3.5 - 5.6 cm AV Peak Octavio 1.1 m/sec LVIDs 2D 3.5 2.1 - 4.1 cm AV Peak PG 5.0 mmHg FS 2D 29.2 % LVOT Peak Octavio 0.8 m/sec LVPWd 2D 1.3 0.6 - 1.1 cm LVOT Peak PG 3.0 mmHg IVSd 2D 1.3 0.6 - 1.1 cm MV E Peak Octavio 0.6 m/sec IVS/LVPW 2D 1.0 MV A Peak Octavio 0.8 m/sec AoR Diam 2D 3.3 2.0 - 3.7 cm MV E/A 0.7 LA/Ao 2D 1 0 - 1 MV Decel Time 236 msec EDV 2D 120.0 cm3 MV E/A 0.7 ESV 2D 42.5 cm3 TR Peak Octavio 2.7 m/sec LA Dimen 2D 4.0 2.3 - 4.0 cm TR Peak PG 29.0 mmHg RVSP 32.0 mmHg Findings Left Ventricle: Normal left ventricular systolic function. Normal left ventricular cavity size. Mild concentric left ventricular hypertrophy. Ejection fraction is visually estimated at 65 %. Tissue Doppler/Mitral Doppler indices are within normal limits. Right Ventricle: Normal right ventricular size. Normal right ventricular systolic function. Left Atrium: The left atrium is normal in size. Right Atrium: The right atrium is normal in size. Mitral Valve: Mild mitral leaflet calcification. Mild mitral annular calcification. Trace mitral regurgitation. Aortic Valve: Aortic cusps appear mildly calcified. Aortic valve opens normally. Trace aortic valve regurgitation. Tricuspid Valve: Normal appearance of the tricuspid valve. Estimated peak PA systolic pressure 32 mmHg. There is mild tricuspid regurgitation. Pulmonic Valve: Pulmonic valve not well visualized. There is trace pulmonic regurgitation. Pericardium: Normal pericardium with no significant pericardial effusion. Aorta: Normal aortic root. IVC: Normal size and normal respiratory collapse consistent with normal right atrial pressure. Conclusions 1.Normal left ventricular systolic function. Normal left ventricular cavity size. Mild concentric left ventricular hypertrophy. Ejection fraction is visually estimated at 65 %. Tissue Doppler/Mitral Doppler indices are within normal limits. Electronically Signed By: Vera Dennis 11-May-2017 14:13:00 -0700 Patient Name: VANDANA SU Study Date: 10-May-2017 [id number]
--- NOTE | 2017-05-11 18:34 | CONS ---
Date/Time of Note Date/Time of Note DATE: 05/11/17 TIME: 18:33 Assessment/Plan Assessment/Plan Chief Complaint/Hosp Course 66-year-old male who presents with sudden onset, constant, moderate chills for the last 1-1/2 hours. He reports having mild headache, mild sore throat, and nonproductive cough for the last 2 days. He denies neck stiffness, abdominal pain, dysuria. He denies back pain. He reports mild shortness of breath. Patient denies any chest pain.he was noted to have Cr 2.44. Renal has been consulted for Acute on chronic renal failure, Problems: Additional Assessment/Plan 1. HARJINDER on CKD due to Sepsis and Cardiorenal syndrome 2. H/o CKD III 3. Chest pain with elevated troponin 4. Coronary artery disease 5. Hypertension Plan : continue current care Cr slightly improved to 2.19 with IVF NS at 50 cc/hr Continue IV levaquin to cover for infection, Renally dose all abx pt revisously has a a CKD work up so need for work up at this time will follow up Consultation Date/Type/Reason Admit Date/Time May 10, 2017 at 02:45 Initial Consult Date 05/10/17 Type of Consultation: NEPHROLOGY Referring Provider: CAROLINE KILLIAN ALTERNATIVE MEDICINE PRACTITIONER Exam/Review of Systems Vital Signs Vitals Vital Signs Date Time Temp Pulse Resp B/P Pulse Ox O2 Delivery O2 Flow Rate FiO2 05/11/17 16:00 86 05/11/17 15:57 98.1 19 116/74 96 05/11/17 10:53 Nasal Cannula 2.0 Intake and Output 05/10/17 05/10/17 05/11/17 15:00 23:00 07:00 Intake Total 830 ml 800 ml Output Total 1575 ml 1200 ml Balance -745 ml -400 ml Exam Constitutional: alert Respiratory: clear to auscultation, crackles/rales, diminished breath sounds Cardiovascular: nl pulses, regular rate and rhythm Gastrointestinal: nl liver, spleen, non-tender, soft Musculoskeletal: joint tenderness, swelling Neurological: PUBLICATIONS DESIGNER II-XII intact, nl mental status, nl speech Skin: nl turgor Results Result Diagram: 05/11/17 0627 05/11/17 0627 Results 24 hrs Laboratory Tests Test 05/10/17 20:46 05/11/17 06:27 05/11/17 08:06 05/11/17 12:23 Bedside Glucose 90 87 118 White Blood Count 10.7 Red Blood Count 3.74 L Hemoglobin 11.1 L Hematocrit 35.8 L Mean Corpuscular Volume 95.7 Mean Corpuscular Hemoglobin 29.7 Mean Corpuscular Hemoglobin Concent 31.0 L Red Cell Distribution Width 13.6 Platelet Count 140 Mean Platelet Volume 11.6 H Neutrophils % 71.8 Lymphocytes % 14.1 L Monocytes % 12.2 H Eosinophils % 1.0 Basophils % 0.5 Nucleated Red Blood Cells % 0.0 Neutrophils # 7.7 H Lymphocytes # 1.5 Monocytes # 1.3 H Eosinophils # 0.1 Basophils # 0.1 Nucleated Red Blood Cells # 0.0 Sodium Level 143 Potassium Level 4.1 Chloride Level 113 H Carbon Dioxide Level 22 Anion Gap 12 Blood Urea Nitrogen 33 H Creatinine 2.19 H Glucose Level 90 # Hemoglobin A1c 5.6 Calcium Level 8.9 Magnesium Level 1.7 Total Bilirubin 0.1 L Direct Bilirubin 0.00 Indirect Bilirubin 0.1 Aspartate Amino Transf (AST/SGOT) 26 Alanine Aminotransferase (ALT/SGPT) 27 Alkaline Phosphatase 82 Total Protein 6.8 # Albumin 3.3 Globulin 3.50 H Albumin/Globulin Ratio 0.94 Triglycerides Level 172 H Cholesterol Level 124 LDL Cholesterol, Calculated 67 HDL Cholesterol 23 L Cholesterol/HDL Ratio 5.3 Thyroid Stimulating Hormone (TSH) 4.260 Test 05/11/17 17:06 Bedside Glucose 95 Medications Medications Current Medications Sodium Chloride (NS) 1,000 ml @ 50 mls/hr Q20H IV Last administered on t 01:19; Admin Dose 50 MLS/HR; Start 05/10/17 at 02:38 Ondansetron HCl (Zofran Inj) 4 mg Q6H PRN IV NAUSEA AND/OR VOMITING; Start at 03:00 Acetaminophen (Tylenol Tab) 650 mg Q6H PRN PO PAIN LEVEL 1-3 OR FEVER; Start at 03:00 Morphine Sulfate (morphine) 2 mg Q4H PRN IV PAIN LEVEL 7-10; Start 05/10/17 at 03:00 Docusate Sodium (Colace) 100 mg Q12H PRN PO CONSTIPATION; Start 05/10/17 at 03: 00 Bisacodyl 5 mg 5 mg DAILY PRN PO CONSTIPATION; Start 05/10/17 at 03:00 Levofloxacin/ Dextrose (Levaquin 750 Mg/ D5W 150 ml (Pmx)) 150 ml @ 100 mls/hr Q48H IVPB ; Start 05/11/17 at 22:00 Guaifenesin/ Dextromethorphan (Robitussin Dm Liquid Cup) 5 ml Q4H PRN PO COUGH Last administered on 05/10/17 23:54; Admin Dose 5 ML; Start 05/10/17 at 13:30 Heparin Sodium (Porcine) (Heparin (5000 Units/0.5 ml)) 5,000 unit Q8 SC Last administered on 05/11/17 13:15; Admin Dose 5,000 UNIT; Start 05/10/17 at 22:00 Amlodipine Besylate (Norvasc) 5 mg DAILY PO Last administered on 05/11/17 08: 24; Admin Dose 5 MG; Start 05/11/17 at 09:00 Aspirin (Aspirin) 81 mg DAILY PO Last administered on 05/11/17 08:23; Admin Dose 81 MG; Start 05/11/17 at 09:00 Atorvastatin Calcium (Lipitor) 10 mg QHS PO Last administered on 05/10/17 20: 48; Admin Dose 10 MG; Start 05/10/17 at 21:00 Carvedilol (Coreg) 25 mg BID PO Last administered on 05/11/17 08:23; Admin Dose 25 MG; Start 05/10/17 at 21:00 Gabapentin (Neurontin) 100 mg QHS PO Last administered on 05/10/17 20:48; Admin Dose 100 MG; Start 05/10/17 at 21:00 Hydralazine HCl (Apresoline) 50 mg Q8 PO Last administered on 05/11/17 13:16; Admin Dose 50 MG; Start 05/10/17 at 22:00 Linagliptin (Tradjenta) 5 mg DAILY PO Last administered on 05/11/17 08:30; Admin Dose 5 MG; Start 05/11/17 at 09:00 Diagnostic Test (Pha) (Accu-Chek) 1 ea 02 XX ; Start 05/11/17 at 02:00 Insulin Glargine (Lantus) 12 unit DAILY@08 SC ; Start 05/11/17 at 08:00 Diagnostic Test (Pha) (Accu-Chek) 1 ea 02 XX ; Start 05/11/17 at 02:00 Miscellaneous Information 1 ea NOTE XX ; Start 05/10/17 at 16:30 Glucose (Glutose) 15 gm Q15M PRN PO DECREASED GLUCOSE; Start 05/10/17 at 16:30 Glucose (Glutose) 22.5 gm Q15M PRN PO DECREASED GLUCOSE; Start 05/10/17 at 16: 30 Dextrose (D50w Syringe) 25 ml Q15M PRN IV DECREASED GLUCOSE; Start 05/10/17 at 16:30 Dextrose (D50w Syringe) 50 ml Q15M PRN IV DECREASED GLUCOSE; Start 05/10/17 at 16:30 Glucagon (Glucagen) 1 mg Q15M PRN IM DECREASED GLUCOSE; Start 05/10/17 at 16:30 Glucose (Glutose) 15 gm Q15M PRN BUCCAL DECREASED GLUCOSE; Start 05/10/17 at 16 :30 Famotidine (Pepcid) 20 mg DAILY PO Last administered on 05/11/17t 08:29; Admin Dose 20 MG; Start 05/11/17 at 09:00 Al Hydrox/Mg Hydrox/Simethicone (Mag-Al Plus) 30 ml Q6H PRN PO GASTROINTESTINAL UPSET; Start 05/10/17 at 21:00 PAULO CAROLINA MD May 11, 2017 18:34
--- NOTE | 2017-05-11 20:10 | PN ---
Date/Time of Note Date/Time of Note DATE: 05/11/17 TIME: 20:01 Assessment/Plan VTE Prophylaxis VTE Prophylaxis Intervention: SCD's Lines/Catheters IV [facility]ter Type [facility] Peripheral IV Urinary Cath still in place: No Assessment/Plan Chief Complaint/Hosp Course Assessment and plan 1. Sepsis. Patient did have urinary culture showing gram-negative bacteria. Continue antibiotics. Appears to be improving at present. Afebrile at present. Will monitor. 2. Elevated troponins. In the setting of CKD and possible sepsis. Cardiology following. Likely noncardiac. Monitor for now. 3. History of CAD with cardiac stent. Continue optimization of cardiovascular medications. Continue with cardiology recommendations. 4. Acute on likely chronic kidney disease. A R Collections Rep following. Renally dose medications. Monitor for improvement of renal status. Disposition and plan: Appears improved at this time. Monitor for clinical improvement of renal status. Discharged in medically stable and cleared by consultants. Discussed plan of care with Dr. Holloway Problems: Subjective 24 Hr Interval Summary Free Text/Dictation Patient seen sitting in chair. No other further reports of chest pain. Less rigors and chills at this time. Comfortable at present. Exam/Review of Systems Vital Signs Vitals Vital Signs Date Time Temp Pulse Resp B/P Pulse Ox O2 Delivery O2 Flow Rate FiO2 05/11/17 19:28 97.7 77 21 114/59 98 05/11/17 10:53 Nasal Cannula 2.0 Intake and Output 05/10/17 05/10/17 05/11/17 15:00 23:00 07:00 Intake Total 830 ml 800 ml Output Total 1575 ml 1200 ml Balance -745 ml -400 ml Exam Constitutional: alert, oriented Psych: nl mood/affect Eyes: nl conjunctiva Neck: supple Respiratory: clear to auscultation Cardiovascular: regular rate and rhythm Gastrointestinal: non-tender, soft Neurological: ASSISTANT WAREHOUSE MANAGER II-XII intact, nl mental status, nl speech Skin: nl turgor Results Result Diagram: 05/11/1762605/11/17626 Results 24 hrs Laboratory Tests Test 05/10/17 20:46 05/11/17 06:27 05/11/17 08:06 05/11/17 12:23 Bedside Glucose 90 87 118 White Blood Count 10.7 Red Blood Count 3.74 L Hemoglobin 11.1 L Hematocrit 35.8 L Mean Corpuscular Volume 95.7 Mean Corpuscular Hemoglobin 29.7 Mean Corpuscular Hemoglobin Concent 31.0 L Red Cell Distribution Width 13.6 Platelet Count 140 Mean Platelet Volume 11.6 H Neutrophils % 71.8 Lymphocytes % 14.1 L Monocytes % 12.2 H Eosinophils % 1.0 Basophils % 0.5 Nucleated Red Blood Cells % 0.0 Neutrophils # 7.7 H Lymphocytes # 1.5 Monocytes # 1.3 H Eosinophils # 0.1 Basophils # 0.1 Nucleated Red Blood Cells # 0.0 Sodium Level 143 Potassium Level 4.1 Chloride Level 113 H Carbon Dioxide Level 22 Anion Gap 12 Blood Urea Nitrogen 33 H Creatinine 2.19 H Glucose Level 90 # Hemoglobin A1c 5.6 Calcium Level 8.9 Magnesium Level 1.7 Total Bilirubin 0.1 L Direct Bilirubin 0.00 Indirect Bilirubin 0.1 Aspartate Amino Transf (AST/SGOT) 26 Alanine Aminotransferase (ALT/SGPT) 27 Alkaline Phosphatase 82 Total Protein 6.8 # Albumin 3.3 Globulin 3.50 H Albumin/Globulin Ratio 0.94 Triglycerides Level 172 H Cholesterol Level 124 LDL Cholesterol, Calculated 67 HDL Cholesterol 23 L Cholesterol/HDL Ratio 5.3 Thyroid Stimulating Hormone (TSH) 4.260 Test 05/11/17 17:06 Bedside Glucose 95 Medications Medications Current Medications Sodium Chloride (NS) 1,000 ml @ 50 mls/hr Q20H IV Last administered on t 01:19; Admin Dose 50 MLS/HR; Start 05/10/17 at 02:38 Ondansetron HCl (Zofran Inj) 4 mg Q6H PRN IV NAUSEA AND/OR VOMITING; Start at 03:00 Acetaminophen (Tylenol Tab) 650 mg Q6H PRN PO PAIN LEVEL 1-3 OR FEVER; Start at 03:00 Morphine Sulfate (morphine) 2 mg Q4H PRN IV PAIN LEVEL 7-10; Start 05/10/17 at 03:00 Docusate Sodium (Colace) 100 mg Q12H PRN PO CONSTIPATION; Start 05/10/17 at 03: 00 Bisacodyl 5 mg 5 mg DAILY PRN PO CONSTIPATION; Start 05/10/17 at 03:00 Levofloxacin/ Dextrose (Levaquin 750 Mg/ D5W 150 ml (Pmx)) 150 ml @ 100 mls/hr Q48H IVPB ; Start 05/11/17 at 22:00 Guaifenesin/ Dextromethorphan (Robitussin Dm Liquid Cup) 5 ml Q4H PRN PO COUGH Last administered on 05/10/17 23:54; Admin Dose 5 ML; Start 05/10/17 at 13:30 Heparin Sodium (Porcine) (Heparin (5000 Units/0.5 ml)) 5,000 unit Q8 SC Last administered on 05/11/17 13:15; Admin Dose 5,000 UNIT; Start 05/10/17 at 22:00 Amlodipine Besylate (Norvasc) 5 mg DAILY PO Last administered on 05/11/17 08: 24; Admin Dose 5 MG; Start 05/11/17 at 09:00 Aspirin (Aspirin) 81 mg DAILY PO Last administered on 05/11/17 08:23; Admin Dose 81 MG; Start 05/11/17 at 09:00 Atorvastatin Calcium (Lipitor) 10 mg QHS PO Last administered on 05/10/17 20: 48; Admin Dose 10 MG; Start 05/10/17 at 21:00 Carvedilol (Coreg) 25 mg BID PO Last administered on 05/11/17 08:23; Admin Dose 25 MG; Start 05/10/17 at 21:00 Gabapentin (Neurontin) 100 mg QHS PO Last administered on 05/10/17 20:48; Admin Dose 100 MG; Start 05/10/17 at 21:00 Hydralazine HCl (Apresoline) 50 mg Q8 PO Last administered on 05/11/17 13:16; Admin Dose 50 MG; Start 05/10/17 at 22:00 Linagliptin (Tradjenta) 5 mg DAILY PO Last administered on 05/11/17 08:30; Admin Dose 5 MG; Start 05/11/17 at 09:00 Diagnostic Test (Pha) (Accu-Chek) 1 ea 02 XX ; Start 05/11/17 at 02:00 Insulin Glargine (Lantus) 12 unit DAILY@08 SC ; Start 05/11/17 at 08:00 Diagnostic Test (Pha) (Accu-Chek) 1 ea 02 XX ; Start 05/11/17 at 02:00 Miscellaneous Information 1 ea NOTE XX ; Start 9/24/17 at 16:30 Glucose (Glutose) 15 gm Q15M PRN PO DECREASED GLUCOSE; Start 05/10/17 at 16:30 Glucose (Glutose) 22.5 gm Q15M PRN PO DECREASED GLUCOSE; Start 05/10/17 at 16: 30 Dextrose (D50w Syringe) 25 ml Q15M PRN IV DECREASED GLUCOSE; Start 05/10/17 at 16:30 Dextrose (D50w Syringe) 50 ml Q15M PRN IV DECREASED GLUCOSE; Start 05/10/17 at 16:30 Glucagon (Glucagen) 1 mg Q15M PRN IM DECREASED GLUCOSE; Start 05/10/17 at 16:30 Glucose (Glutose) 15 gm Q15M PRN BUCCAL DECREASED GLUCOSE; Start 05/10/17 at 16 :30 Famotidine (Pepcid) 20 mg DAILY PO Last administered on 05/11/17t 08:29; Admin Dose 20 MG; Start 05/11/17 at 09:00 Al Hydrox/Mg Hydrox/Simethicone (Mag-Al Plus) 30 ml Q6H PRN PO GASTROINTESTINAL UPSET; Start 05/10/17 at 21:00 REJI POON May 11, 2017 20:10
--- NOTE | 2017-05-11 20:46 | CONS ---
Date/Time of Note Date/Time of Note DATE: 05/11/17 TIME: 20:38 Assessment/Plan Assessment/Plan Chief Complaint/Hosp Course IMP: 1.Nstemi- downtrending cardiac enzymes in the setting of renal failure 2.H/O stent 3.HTN 4.HL 5.DM 6. Renal failure 7. UTI 8.URI Recc: -Tele -Continue coreg/norvasc -Continue asa/statin -trend cardiac enzymes -Continue abx's/f/u cx data -Lexiscan to assess significance of positive troponins Problems: Consultation Date/Type/Reason Admit Date/Time May 10, 2017 at 02:45 Initial Consult Date 05/10/17 Type of Consultation: cardiology Reason for Consultation positive troponin/Nstemi Referring Provider: CAROLINE KILLIAN TERRITORY SALES REPRESENTATIVE Exam/Review of Systems Vital Signs Vitals Vital Signs Date Time Temp Pulse Resp B/P Pulse Ox O2 Delivery O2 Flow Rate FiO2 05/11/17 19:28 97.7 77 21 114/59 98 05/11/17 10:53 Nasal Cannula 2.0 Intake and Output 05/10/17 05/10/17 05/11/17 15:00 23:00 07:00 Intake Total 830 ml 800 ml Output Total 1575 ml 1200 ml Balance -745 ml -400 ml Exam Review of Systems: CONSTITUTIONAL: No fevers, chills. PULMONARY: No sob CARDIOVASCULAR: No chest pain/palpitations GASTROINTESTINAL: No nausea/vomiting. GENITOURINARY: No hematuria/dysuria. MUSCULOSKELETAL: No myagias/arthalgias. PSYCHIATRIC: The patient denies depression. NEUROLOGIC: No weakness Constitutional: alert, oriented Head: normocephalic ENMT: mucosa pink and moist Neck: jvd (9 cm water), supple Respiratory: diminished breath sounds Cardiovascular: regular rate and rhythm Gastrointestinal: non-tender, soft Musculoskeletal: muscle tone (normal) Extremities: other (s/p amutation) Results Result Diagram: 05/11/17 0627 05/11/17 0627 Results 24 hrs Laboratory Tests Test 05/10/17 20:46 05/11/17 06:27 05/11/17 08:06 05/11/17 12:23 Bedside Glucose 90 87 118 White Blood Count 10.7 Red Blood Count 3.74 L Hemoglobin 11.1 L Hematocrit 35.8 L Mean Corpuscular Volume 95.7 Mean Corpuscular Hemoglobin 29.7 Mean Corpuscular Hemoglobin Concent 31.0 L Red Cell Distribution Width 13.6 Platelet Count 140 Mean Platelet Volume 11.6 H Neutrophils % 71.8 Lymphocytes % 14.1 L Monocytes % 12.2 H Eosinophils % 1.0 Basophils % 0.5 Nucleated Red Blood Cells % 0.0 Neutrophils # 7.7 H Lymphocytes # 1.5 Monocytes # 1.3 H Eosinophils # 0.1 Basophils # 0.1 Nucleated Red Blood Cells # 0.0 Sodium Level 143 Potassium Level 4.1 Chloride Level 113 H Carbon Dioxide Level 22 Anion Gap 12 Blood Urea Nitrogen 33 H Creatinine 2.19 H Glucose Level 90 # Hemoglobin A1c 5.6 Calcium Level 8.9 Magnesium Level 1.7 Total Bilirubin 0.1 L Direct Bilirubin 0.00 Indirect Bilirubin 0.1 Aspartate Amino Transf (AST/SGOT) 26 Alanine Aminotransferase (ALT/SGPT) 27 Alkaline Phosphatase 82 Total Protein 6.8 # Albumin 3.3 Globulin 3.50 H Albumin/Globulin Ratio 0.94 Triglycerides Level 172 H Cholesterol Level 124 LDL Cholesterol, Calculated 67 HDL Cholesterol 23 L Cholesterol/HDL Ratio 5.3 Thyroid Stimulating Hormone (TSH) 4.260 Test 05/11/17 17:06 Bedside Glucose 95 Medications Medications Current Medications Sodium Chloride (NS) 1,000 ml @ 50 mls/hr Q20H IV Last administered on t 01:19; Admin Dose 50 MLS/HR; Start 05/10/17 at 02:38 Ondansetron HCl (Zofran Inj) 4 mg Q6H PRN IV NAUSEA AND/OR VOMITING; Start at 03:00 Acetaminophen (Tylenol Tab) 650 mg Q6H PRN PO PAIN LEVEL 1-3 OR FEVER; Start at 03:00 Morphine Sulfate (morphine) 2 mg Q4H PRN IV PAIN LEVEL 7-10; Start 05/10/17 at 03:00 Docusate Sodium (Colace) 100 mg Q12H PRN PO CONSTIPATION; Start 05/10/17 at 03: 00 Bisacodyl 5 mg 5 mg DAILY PRN PO CONSTIPATION; Start 05/10/17 at 03:00 Levofloxacin/ Dextrose (Levaquin 750 Mg/ D5W 150 ml (Pmx)) 150 ml @ 100 mls/hr Q48H IVPB ; Start 05/11/17 at 22:00 Guaifenesin/ Dextromethorphan (Robitussin Dm Liquid Cup) 5 ml Q4H PRN PO COUGH Last administered on 05/10/17 23:54; Admin Dose 5 ML; Start 05/10/17 at 13:30 Heparin Sodium (Porcine) (Heparin (5000 Units/0.5 ml)) 5,000 unit Q8 SC Last administered on 05/11/17 13:15; Admin Dose 5,000 UNIT; Start 05/10/17 at 22:00 Amlodipine Besylate (Norvasc) 5 mg DAILY PO Last administered on 05/11/17 08: 24; Admin Dose 5 MG; Start 05/11/17 at 09:00 Aspirin (Aspirin) 81 mg DAILY PO Last administered on 05/11/17 08:23; Admin Dose 81 MG; Start 05/11/17 at 09:00 Atorvastatin Calcium (Lipitor) 10 mg QHS PO Last administered on 05/10/17 20: 48; Admin Dose 10 MG; Start 05/10/17 at 21:00 Carvedilol (Coreg) 25 mg BID PO Last administered on 05/11/17 08:23; Admin Dose 25 MG; Start 05/10/17 at 21:00 Gabapentin (Neurontin) 100 mg QHS PO Last administered on 05/10/17 20:48; Admin Dose 100 MG; Start 05/10/17 at 21:00 Hydralazine HCl (Apresoline) 50 mg Q8 PO Last administered on 05/11/17 13:16; Admin Dose 50 MG; Start 05/10/17 at 22:00 Linagliptin (Tradjenta) 5 mg DAILY PO Last administered on 05/11/17 08:30; Admin Dose 5 MG; Start 05/11/17 at 09:00 Diagnostic Test (Pha) (Accu-Chek) 1 ea 02 XX ; Start 05/11/17 at 02:00 Insulin Glargine (Lantus) 12 unit DAILY@08 SC ; Start 05/11/17 at 08:00 Diagnostic Test (Pha) (Accu-Chek) 1 ea 02 XX ; Start 05/11/17 at 02:00 Miscellaneous Information 1 ea NOTE XX ; Start 05/10/17 at 16:30 Glucose (Glutose) 15 gm Q15M PRN PO DECREASED GLUCOSE; Start 05/10/17 at 16:30 Glucose (Glutose) 22.5 gm Q15M PRN PO DECREASED GLUCOSE; Start 05/10/17 at 16: 30 Dextrose (D50w Syringe) 25 ml Q15M PRN IV DECREASED GLUCOSE; Start 05/10/17 at 16:30 Dextrose (D50w Syringe) 50 ml Q15M PRN IV DECREASED GLUCOSE; Start 05/10/17 at 16:30 Glucagon (Glucagen) 1 mg Q15M PRN IM DECREASED GLUCOSE; Start 05/10/17 at 16:30 Glucose (Glutose) 15 gm Q15M PRN BUCCAL DECREASED GLUCOSE; Start 05/10/17 at 16 :30 Famotidine (Pepcid) 20 mg DAILY PO Last administered on 05/11/17t 08:29; Admin Dose 20 MG; Start 05/11/17 at 09:00 Al Hydrox/Mg Hydrox/Simethicone (Mag-Al Plus) 30 ml Q6H PRN PO GASTROINTESTINAL UPSET; Start 05/10/17 at 21:00 VIDHYA MCFADDEN May 11, 2017 20:46
[2017-05-11] MEDS: ATORVASTATIN 10 MG TAB PO SCH (20:59)
[2017-05-11] MEDS: GABAPENTIN 100 MG CAP PO SCH (20:59)
[2017-05-11] MEDS: GUAIFENESIN/DM 5ML CUP PO PRN (21:12)
[2017-05-11] MEDS ORDERED: LEVOFLOXACIN 750MG/D5W (PMX) 150 ML IVPB SCH (22:00)
[2017-05-12] VITALS (12 sets, daily range): BP systolic 102–138; BP diastolic 62–82; PULSE 73–91; RESP 17–20
[2017-05-12] MEDS: ACCU-CHEK XX SCH ×2 (02:00)
[2017-05-12] MEDS: HEPARIN 5,000 UNIT/0.5 ML VIAL SC SCH ×3 (05:53→20:28)
[2017-05-12] MEDS: INSULIN GLARGINE [LANtus] 3 ML PEN SC SCH (08:00)
[2017-05-12] MEDS: INSULIN ASPART [NOVOLOG] 3 ML PEN SC SCH ×7 (08:00→21:00)
[2017-05-12] MEDS: LINAGLIPTIN 5 MG TABLET PO SCH (08:40)
[2017-05-12] MEDS: AMLODIPINE 5 MG TAB PO SCH (08:41)
[2017-05-12] MEDS: ASPIRIN 81 MG TAB PO SCH (08:42)
[2017-05-12] MEDS ORDERED: FAMOTIDINE 20 MG TAB ONE (08:50)
[2017-05-12] MEDS: FAMOTIDINE 20 MG TAB PO SCH (08:51)
--- NOTE | 2017-05-12 10:05 | CONS ---
Date/Time of Note Date/Time of Note DATE: 05/12/17 TIME: 10:03 Assessment/Plan Assessment/Plan Additional Assessment/Plan 1.Nstemi- downtrending cardiac enzymes in the setting of renal failure - Lori Stress test scheduled today 2.H/O stent - now CP free -stress test to follow 3.HTN - wel lRx, con't to adjust Rx as needed 4.HL 5.DM - on meds, will keep euglycemic 6. Renal failure - chronic, primary follows - avoid nephrotoxic meds 7. UTI 8.URI Consultation Date/Type/Reason Admit Date/Time May 10, 2017 at 02:45 Initial Consult Date 05/10/17 Type of Consultation: cardiology Referring Provider: CAROLINE KILLIAN NP 24 HR Interval Summary Free Text/Dictation Lori Stress test scheduled today - NO CP now ROS: No fever, no chills, no nausea, no vomiting, no diarrhea/constipation No recent weight changes No chest pain, no PND, no orthopnea No dizziness, blurred vision No thirst, no heat or cold intolerance Exam/Review of Systems Vital Signs Vitals Vital Signs Date Time Temp Pulse Resp B/P Pulse Ox O2 Delivery O2 Flow Rate FiO2 05/12/17 08:20 86 05/12/17 07:57 Nasal Cannula 2.0 05/12/17 07:40 98.1 20 102/62 98 Intake and Output 05/11/17 05/11/17 05/12/17 15:00 23:00 07:00 Intake Total 750 ml 800 ml Balance 750 ml 800 ml Exam General: WN/WD/NAD, AOx 2-3 HEENT: Unicetric/atraumatic/EOMI (follow commands) NECK: JVD elevated, no thyromegaly Lymph: no lymphadenopathy HEART: regular with no S3, II/ systolic murmur at apex LUNGS: Coarse sounds ABD: soft, NT, ND, +BS : Intact Neuro: non focal SKIN: chronic changes EXT: trace edema, amput Results Result Diagram: 05/11/1762605/11/17626 Results 24 hrs Laboratory Tests Test 05/11/17 12:23 05/11/17 17:06 05/11/17 21:14 05/12/17 08:20 Bedside Glucose 118 95 106 105 Medications Medications Current Medications Sodium Chloride (NS) 1,000 ml @ 50 mls/hr Q20H IV Last administered on 01:19; Admin Dose 50 MLS/HR; Start 05/10/17 at 02:38 Ondansetron HCl (Zofran Inj) 4 mg Q6H PRN IV NAUSEA AND/OR VOMITING; Start at 03:00 Acetaminophen (Tylenol Tab) 650 mg Q6H PRN PO PAIN LEVEL 1-3 OR FEVER; Start at 03:00 Morphine Sulfate (morphine) 2 mg Q4H PRN IV PAIN LEVEL 7-10; Start 05/10/17 at 03:00 Docusate Sodium (Colace) 100 mg Q12H PRN PO CONSTIPATION; Start 05/10/17 at 03: 00 Bisacodyl 5 mg 5 mg DAILY PRN PO CONSTIPATION; Start 05/10/17 at 03:00 Levofloxacin/ Dextrose (Levaquin 750 Mg/ D5W 150 ml (Pmx)) 150 ml @ 100 mls/hr Q48H IVPB Last administered on 05/11/17 21:12; Admin Dose 100 MLS/HR; Start at 22:00 Guaifenesin/ Dextromethorphan (Robitussin Dm Liquid Cup) 5 ml Q4H PRN PO COUGH Last administered on 05/11/17 21:12; Admin Dose 5 ML; Start 05/10/17 at 13:30 Heparin Sodium (Porcine) (Heparin (5000 Units/0.5 ml)) 5,000 unit Q8 SC Last administered on 05/11/17 13:15; Admin Dose 5,000 UNIT; Start 05/10/17 at 22:00 Amlodipine Besylate (Norvasc) 5 mg DAILY PO Last administered on 05/12/17 08: 41; Admin Dose 5 MG; Start 05/11/17 at 09:00 Aspirin (Aspirin) 81 mg DAILY PO Last administered on 05/12/17 08:42; Admin Dose 81 MG; Start 05/11/17 at 09:00 Atorvastatin Calcium (Lipitor) 10 mg QHS PO Last administered on 05/11/17 20: 59; Admin Dose 10 MG; Start 05/10/17 at 21:00 Carvedilol (Coreg) 25 mg BID PO Last administered on 05/12/17 08:42; Admin Dose 25 MG; Start 05/10/17 at 21:00 Gabapentin (Neurontin) 100 mg QHS PO Last administered on 05/11/17 20:59; Admin Dose 100 MG; Start 05/10/17 at 21:00 Hydralazine HCl (Apresoline) 50 mg Q8 PO Last administered on 05/12/17 05:54; Admin Dose 50 MG; Start 05/10/17 at 22:00 Linagliptin (Tradjenta) 5 mg DAILY PO Last administered on 05/12/17 08:40; Admin Dose 5 MG; Start 05/11/17 at 09:00 Diagnostic Test (Pha) (Accu-Chek) 1 ea 02 XX ; Start 05/11/17 at 02:00 Insulin Glargine (Lantus) 12 unit DAILY@08 SC ; Start 05/11/17 at 08:00 Diagnostic Test (Pha) (Accu-Chek) 1 ea 02 XX ; Start 05/11/17 at 02:00 Miscellaneous Information 1 ea NOTE XX ; Start 05/10/17 at 16:30 Glucose (Glutose) 15 gm Q15M PRN PO DECREASED GLUCOSE; Start 05/10/17 at 16:30 Glucose (Glutose) 22.5 gm Q15M PRN PO DECREASED GLUCOSE; Start 05/10/17 at 16: 30 Dextrose (D50w Syringe) 25 ml Q15M PRN IV DECREASED GLUCOSE; Start 05/10/17 at 16:30 Dextrose (D50w Syringe) 50 ml Q15M PRN IV DECREASED GLUCOSE; Start 05/10/17 at 16:30 Glucagon (Glucagen) 1 mg Q15M PRN IM DECREASED GLUCOSE; Start 05/10/17 at 16:30 Glucose (Glutose) 15 gm Q15M PRN BUCCAL DECREASED GLUCOSE; Start 05/10/17 at 16 :30 Famotidine (Pepcid) 20 mg DAILY PO Last administered on 05/12/17 08:51; Admin Dose 20 MG; Start 05/11/17 at 09:00 Al Hydrox/Mg Hydrox/Simethicone (Mag-Al Plus) 30 ml Q6H PRN PO GASTROINTESTINAL UPSET; Start 05/10/17 at 21:00 JEANNA DAMICO MD May 12, 2017 10:04
--- NOTE | 2017-05-12 11:37 | PN ---
Date/Time of Note Date/Time of Note DATE: 05/12/17 TIME: 11:34 Assessment/Plan VTE Prophylaxis VTE Prophylaxis Intervention: heparin Lines/Catheters IV [facility] Peripheral IV Urinary Cath still in place: No Assessment/Plan Chief Complaint/Hosp Course Assessment and plan 1. Sepsis. Patient does have urine culture with Proteus mirabilis.. Continue antibiotics. Appears to be improving at present. Afebrile at present. Will monitor. 2. Elevated troponins. In the setting of CKD and possible sepsis. Cardiology following. Plan for stress test today. 3. History of CAD with cardiac stent. Continue optimization of cardiovascular medications. Continue with cardiology recommendations. 4. Acute on likely chronic kidney disease. Wine Bottle Inspector following. Renally dose medications. Monitor for improvement of renal status. Disposition and plan: Continue with antibiotics. Plan for stress test. Will follow. Follow-up with closet builder and chemistry for further monitoring of renal panel. Discharge when cleared by consultants and medically stable. Discussed plan of care with Dr. Holloway Problems: Subjective 24 Hr Interval Summary Free Text/Dictation no s/s of distress Exam/Review of Systems Vital Signs Vitals Vital Signs Date Time Temp Pulse Resp B/P Pulse Ox O2 Delivery O2 Flow Rate FiO2 05/12/17 08:20 86 05/12/17 07:57 Nasal Cannula 2.0 05/12/17 07:40 98.1 20 102/62 98 Intake and Output 05/11/17 05/11/17 05/12/17 15:00 23:00 07:00 Intake Total 750 ml 800 ml Balance 750 ml 800 ml Exam Constitutional: alert, oriented Psych: nl mood/affect Eyes: nl conjunctiva Neck: supple Respiratory: clear to auscultation Cardiovascular: regular rate and rhythm Gastrointestinal: non-tender, soft Neurological: FILAMENT COIL WINDER II-XII intact, nl mental status, nl speech Skin: nl turgor Results Result Diagram: 05/11/1762605/11/17626 Results 24 hrs Laboratory Tests Test 05/11/17 12:23 05/11/17 17:06 05/11/17 21:14 05/12/17 08:20 Bedside Glucose 118 95 106 105 Medications Medications Current Medications Sodium Chloride (NS) 1,000 ml @ 50 mls/hr Q20H IV Last administered on t 01:19; Admin Dose 50 MLS/HR; Start 05/10/17 at 02:38 Ondansetron HCl (Zofran Inj) 4 mg Q6H PRN IV NAUSEA AND/OR VOMITING; Start at 03:00 Acetaminophen (Tylenol Tab) 650 mg Q6H PRN PO PAIN LEVEL 1-3 OR FEVER; Start at 03:00 Morphine Sulfate (morphine) 2 mg Q4H PRN IV PAIN LEVEL 7-10; Start 05/10/17 at 03:00 Docusate Sodium (Colace) 100 mg Q12H PRN PO CONSTIPATION; Start 05/10/17 at 03: 00 Bisacodyl 5 mg 5 mg DAILY PRN PO CONSTIPATION; Start 05/10/17 at 03:00 Levofloxacin/ Dextrose (Levaquin 750 Mg/ D5W 150 ml (Pmx)) 150 ml @ 100 mls/hr Q48H IVPB Last administered on 05/11/17 21:12; Admin Dose 100 MLS/HR; Start at 22:00 Guaifenesin/ Dextromethorphan (Robitussin Dm Liquid Cup) 5 ml Q4H PRN PO COUGH Last administered on 05/11/17 21:12; Admin Dose 5 ML; Start 05/10/17 at 13:30 Heparin Sodium (Porcine) (Heparin (5000 Units/0.5 ml)) 5,000 unit Q8 SC Last administered on 05/11/17 13:15; Admin Dose 5,000 UNIT; Start 05/10/17 at 22:00 Amlodipine Besylate (Norvasc) 5 mg DAILY PO Last administered on 05/12/17 08: 41; Admin Dose 5 MG; Start 05/11/17 at 09:00 Aspirin (Aspirin) 81 mg DAILY PO Last administered on 05/12/17 08:42; Admin Dose 81 MG; Start 05/11/17 at 09:00 Atorvastatin Calcium (Lipitor) 10 mg QHS PO Last administered on 05/11/17 20: 59; Admin Dose 10 MG; Start 05/10/17 at 21:00 Carvedilol (Coreg) 25 mg BID PO Last administered on 05/12/17 08:42; Admin Dose 25 MG; Start 05/10/17 at 21:00 Gabapentin (Neurontin) 100 mg QHS PO Last administered on 05/11/17 20:59; Admin Dose 100 MG; Start 05/10/17 at 21:00 Hydralazine HCl (Apresoline) 50 mg Q8 PO Last administered on 05/12/17 05:54; Admin Dose 50 MG; Start 05/10/17 at 22:00 Linagliptin (Tradjenta) 5 mg DAILY PO Last administered on 05/12/17 08:40; Admin Dose 5 MG; Start 05/11/17 at 09:00 Diagnostic Test (Pha) (Accu-Chek) 1 ea 02 XX ; Start 05/11/17 at 02:00 Insulin Glargine (Lantus) 12 unit DAILY@08 SC ; Start 05/11/17 at 08:00 Diagnostic Test (Pha) (Accu-Chek) 1 ea 02 XX ; Start 05/11/17 at 02:00 Miscellaneous Information 1 ea NOTE XX ; Start 05/10/17 at 16:30 Glucose (Glutose) 15 gm Q15M PRN PO DECREASED GLUCOSE; Start 05/10/17 at 16:30 Glucose (Glutose) 22.5 gm Q15M PRN PO DECREASED GLUCOSE; Start 05/10/17 at 16: 30 Dextrose (D50w Syringe) 25 ml Q15M PRN IV DECREASED GLUCOSE; Start 05/10/17 at 16:30 Dextrose (D50w Syringe) 50 ml Q15M PRN IV DECREASED GLUCOSE; Start 05/10/17 at 16:30 Glucagon (Glucagen) 1 mg Q15M PRN IM DECREASED GLUCOSE; Start 05/10/17 at 16:30 Glucose (Glutose) 15 gm Q15M PRN BUCCAL DECREASED GLUCOSE; Start 05/10/17 at 16 :30 Famotidine (Pepcid) 20 mg DAILY PO Last administered on 05/12/17 08:51; Admin Dose 20 MG; Start 05/11/17 at 09:00 Al Hydrox/Mg Hydrox/Simethicone (Mag-Al Plus) 30 ml Q6H PRN PO GASTROINTESTINAL UPSET; Start 05/10/17 at 21:00 REJI POON May 12, 2017 11:37
[2017-05-12] MEDS: SOD CHLORIDE 0.9% 1,000 ML IV SCH (12:47)
[2017-05-12 13:11] LABS: CALCIUM 9.4 mg/dl (8.4-10.2); CREATININE 2.14 mg/dl (0.61-1.24); POTASSIUM 4.7 mmol/L (3.5-5.1)
[2017-05-12] MEDS ORDERED: REGADENOSON 0.4 MG/5 ML SYG ONE (13:12)
--- NOTE | 2017-05-12 15:44 | PRO ---
DATE OF PROCEDURE: 05/12/2017 DESCRIPTION OF PROCEDURE: With the patient in supine position, under continuous electrocardiographic monitoring, 0.4 mg of regadenoson was injected intravenously over 20 seconds. Subsequently, the designated dose of radionuclide was injected intravenously and the patient had myocardial perfusion scan. The patient tolerated the procedure with no symptoms. The resting blood pressure was 142/84 mmHg. Resting heart rate 85, BPM regular. The peak blood pressure and heart rate were unchanged. The resting EKG shows sinus rhythm, inverted T-waves in the an inferolateral wall, possibly consistent with inferolateral ischemia. The electrocardiogram also suggested possible septal injury of unknown age. There were no electrocardiographic changes and no arrhythmias throughout the test. SUMMARY: Uneventful Lexiscan stress test. Dictated By: DUANE ANAYA MD /erwin/patricia /Document#: [id number]
--- NOTE | 2017-05-12 17:18 | CONS ---
Date/Time of Note Date/Time of Note DATE: 05/12/17 TIME: 17:16 Assessment/Plan Assessment/Plan Additional Assessment/Plan 1. HARJINDER on CKD due to Sepsis and Cardiorenal syndrome 2. H/o CKD III 3. Chest pain with elevated troponin 4. Coronary artery disease 5. Hypertension Plan : continue current care Cr slightly improved to 2.14 with IVF NS at 50 cc/hr- plna is to d/c IVF in AM Continue IV levaquin to cover for infection, Renally dose all abx pt revisously has a a CKD work up so need for work up at this time will follow up Consultation Date/Type/Reason Admit Date/Time May 10, 2017 at 02:45 Initial Consult Date 05/10/17 Type of Consultation: NEPHROLOGY Referring Provider: CAROLINE KILLIAN NP Exam/Review of Systems Vital Signs Vitals Vital Signs Date Time Temp Pulse Resp B/P Pulse Ox O2 Delivery O2 Flow Rate FiO2 05/12/17 16:16 89 05/12/17 16:06 98.6 18 138/82 95 05/12/17 07:57 Nasal Cannula 2.0 Intake and Output 05/11/17 05/11/17 05/12/17 15:00 23:00 07:00 Intake Total 750 ml 800 ml Balance 750 ml 800 ml Exam Constitutional: alert Respiratory: clear to auscultation, crackles/rales, diminished breath sounds Cardiovascular: nl pulses, regular rate and rhythm Gastrointestinal: nl liver, spleen, non-tender, soft Musculoskeletal: joint tenderness, swelling Neurological: HVAC FIELD SERVICE TECHNICIAN II-XII intact, nl mental status, nl speech Skin: nl turgor Results Result Diagram: 05/11/17 0627 05/12/17 1229 Results 24 hrs Laboratory Tests Test 05/11/17 21:14 05/12/17 08:20 05/12/17 12:12 05/12/17 12:29 Bedside Glucose 106 105 101 Sodium Level 140 Potassium Level 4.7 Chloride Level 109 Carbon Dioxide Level 21 Anion Gap 15 Blood Urea Nitrogen 32 H Creatinine 2.14 H Glucose Level 100 Calcium Level 9.4 Medications Medications Current Medications Sodium Chloride (NS) 1,000 ml @ 50 mls/hr Q20H IV Last administered on t 01:19; Admin Dose 50 MLS/HR; Start 05/10/17 at 02:38 Ondansetron HCl (Zofran Inj) 4 mg Q6H PRN IV NAUSEA AND/OR VOMITING; Start at 03:00 Acetaminophen (Tylenol Tab) 650 mg Q6H PRN PO PAIN LEVEL 1-3 OR FEVER; Start at 03:00 Morphine Sulfate (morphine) 2 mg Q4H PRN IV PAIN LEVEL 7-10; Start 05/10/17 at 03:00 Docusate Sodium (Colace) 100 mg Q12H PRN PO CONSTIPATION; Start 05/10/17 at 03: 00 Bisacodyl 5 mg 5 mg DAILY PRN PO CONSTIPATION; Start 05/10/17 at 03:00 Levofloxacin/ Dextrose (Levaquin 750 Mg/ D5W 150 ml (Pmx)) 150 ml @ 100 mls/hr Q48H IVPB Last administered on 05/11/17 21:12; Admin Dose 100 MLS/HR; Start at 22:00 Guaifenesin/ Dextromethorphan (Robitussin Dm Liquid Cup) 5 ml Q4H PRN PO COUGH Last administered on 05/11/17 21:12; Admin Dose 5 ML; Start 05/10/17 at 13:30 Heparin Sodium (Porcine) (Heparin (5000 Units/0.5 ml)) 5,000 unit Q8 SC Last administered on 05/11/17 13:15; Admin Dose 5,000 UNIT; Start 05/10/17 at 22:00 Amlodipine Besylate (Norvasc) 5 mg DAILY PO Last administered on 05/12/17 08: 41; Admin Dose 5 MG; Start 05/11/17 at 09:00 Aspirin (Aspirin) 81 mg DAILY PO Last administered on 05/12/17 08:42; Admin Dose 81 MG; Start 05/11/17 at 09:00 Atorvastatin Calcium (Lipitor) 10 mg QHS PO Last administered on 05/11/17 20: 59; Admin Dose 10 MG; Start 05/10/17 at 21:00 Carvedilol (Coreg) 25 mg BID PO Last administered on 05/12/17 08:42; Admin Dose 25 MG; Start 05/10/17 at 21:00 Gabapentin (Neurontin) 100 mg QHS PO Last administered on 05/11/17 20:59; Admin Dose 100 MG; Start 05/10/17 at 21:00 Hydralazine HCl (Apresoline) 50 mg Q8 PO Last administered on 05/12/17 05:54; Admin Dose 50 MG; Start 05/10/17 at 22:00 Linagliptin (Tradjenta) 5 mg DAILY PO Last administered on 05/12/17 08:40; Admin Dose 5 MG; Start 05/11/17 at 09:00 Diagnostic Test (Pha) (Accu-Chek) 1 ea 02 XX ; Start 05/11/17 at 02:00 Insulin Glargine (Lantus) 12 unit DAILY@08 SC ; Start 05/11/17 at 08:00 Diagnostic Test (Pha) (Accu-Chek) 1 ea 02 XX ; Start 05/11/17 at 02:00 Miscellaneous Information 1 ea NOTE XX ; Start 05/10/17 at 16:30 Glucose (Glutose) 15 gm Q15M PRN PO DECREASED GLUCOSE; Start 05/10/17 at 16:30 Glucose (Glutose) 22.5 gm Q15M PRN PO DECREASED GLUCOSE; Start 05/10/17 at 16: 30 Dextrose (D50w Syringe) 25 ml Q15M PRN IV DECREASED GLUCOSE; Start 05/10/17 at 16:30 Dextrose (D50w Syringe) 50 ml Q15M PRN IV DECREASED GLUCOSE; Start 05/10/17 at 16:30 Glucagon (Glucagen) 1 mg Q15M PRN IM DECREASED GLUCOSE; Start 05/10/17 at 16:30 Glucose (Glutose) 15 gm Q15M PRN BUCCAL DECREASED GLUCOSE; Start 05/10/17 at 16 :30 Famotidine (Pepcid) 20 mg DAILY PO Last administered on 05/12/17 08:51; Admin Dose 20 MG; Start 05/11/17 at 09:00 Al Hydrox/Mg Hydrox/Simethicone (Mag-Al Plus) 30 ml Q6H PRN PO GASTROINTESTINAL UPSET; Start 05/10/17 at 21:00 PAULO CAROLINA MD May 12, 2017 17:18
--- NOTE | 2017-05-12 19:06 | RADRPT ---
PROCEDURE: Nuclear medicine myocardial perfusion scan CLINICAL INDICATION: Chest pain TECHNIQUE: 34.0 mCi of technetium 99m Cardiolite was administered for the stress study. 11.0 mCi of technetium 99m Cardiolite was administered for the resting study. The patient was stressed with 0 .4 mg of Lexiscan. Images were reviewed in the short axis, vertical long axis, and horizontal long axis views. Wall motion was assessed and ejection fraction was calculated as well. Images were revi ewed on a high-resolution PACS workstation. COMPARISON: None available FINDINGS: Left ventricular size is within normal limits. There is moderate soft tissue and bowel attenuation artifact. The stress tomographic images demonstrate diminished perfusion along the mid to distal an teroseptal wall and anteroapical wall. The resting tomographic images demonstrate a similar pattern . There is no evidence for reversible ischemia. Wall motion is normal. The ejection fraction is c alculated at 53%. IMPRESSION: 1. Probable old nontransmural ME along the mid to distal anteroseptal wall and anteroapical wall. 2. There is no evidence for reversible ischemia. 3. Normal wall motion with normal ejection fraction of 53%. RPTAT: HMJB .Layo Borrego MD, Date Time Electronically viewed and signed by .Layo Borrego MD, MD on 05/12/2017 19:05 .B/
[2017-05-12] MEDS: GABAPENTIN 100 MG CAP PO SCH (20:17)
[2017-05-12] MEDS: ATORVASTATIN 10 MG TAB PO SCH (20:17)
[2017-05-12] MEDS: GUAIFENESIN/DM 5ML CUP PO PRN (20:26)
[2017-05-13] VITALS (7 sets, daily range): BP systolic 103–130; BP diastolic 56–83; PULSE 68–86; RESP 18–20
[2017-05-13] MEDS: ACCU-CHEK XX SCH ×2 (02:00)
[2017-05-13] MEDS: HEPARIN 5,000 UNIT/0.5 ML VIAL SC SCH ×2 (06:00→14:00)
[2017-05-13] MEDS: INSULIN GLARGINE [LANtus] 3 ML PEN SC SCH (08:00)
[2017-05-13] MEDS: INSULIN ASPART [NOVOLOG] 3 ML PEN SC SCH ×4 (08:00→11:49)
[2017-05-13 08:02] LABS: CALCIUM 9.6 mg/dl (8.4-10.2); CREATININE 2.25 mg/dl (0.61-1.24); POTASSIUM 4.4 mmol/L (3.5-5.1)
[2017-05-13] MEDS: ASPIRIN 81 MG TAB PO SCH (08:17)
[2017-05-13] MEDS: LINAGLIPTIN 5 MG TABLET PO SCH (08:17)
[2017-05-13] MEDS: AMLODIPINE 5 MG TAB PO SCH (08:17)
[2017-05-13] MEDS ORDERED: FAMOTIDINE 20 MG TAB ONE (10:17)
[2017-05-13] MEDS: FAMOTIDINE 20 MG TAB PO SCH (10:18)
[2017-05-13] MEDS: SOD CHLORIDE 0.9% 1,000 ML IV SCH (10:38)
--- NOTE | 2017-05-13 11:01 | CONS ---
Date/Time of Note Date/Time of Note DATE: 05/13/17 TIME: 10:59 Assessment/Plan Assessment/Plan Additional Assessment/Plan 1.Nstemi- downtrending cardiac enzymes in the setting of renal failure - Lori Stress test - EF 53%, no rev ischemia 2.H/O stent - now CP free -stress test to follow - negative s tress test - med rx advised 3.HTN - wel lRx, con't to adjust Rx as needed 4.HL 5.DM - on meds, will keep euglycemic 6. Renal failure - chronic, primary follows - avoid nephrotoxic meds 7. UTI 8.URI Consultation Date/Type/Reason Admit Date/Time May 10, 2017 at 02:45 Initial Consult Date 05/10/17 Type of Consultation: NEPHROLOGY Referring Provider: CAROLINE KILLIAN NP 24 HR Interval Summary Free Text/Dictation Lori Stress test - EF 53%, no rev ischemia ROS: No fever, no chills, no nausea, no vomiting, no diarrhea/constipation No recent weight changes No chest pain, no PND, no orthopnea No dizziness, blurred vision No thirst, no heat or cold intolerance Exam/Review of Systems Vital Signs Vitals Vital Signs Date Time Temp Pulse Resp B/P Pulse Ox O2 Delivery O2 Flow Rate FiO2 05/13/17 08:02 86 05/13/17 07:45 98.4 20 127/83 95 05/12/17 21:26 Nasal Cannula 2.0 Exam General: WN/WD/NAD, AOx 3 HEENT: Unicetric/atraumatic/EOMI (follow commands) NECK: JVD elevated, no thyromegaly Lymph: no lymphadenopathy HEART: regular with no S3, II/ systolic murmur at apex LUNGS: Coarse sounds ABD: soft, NT, ND, +BS : Intact Neuro: non focal SKIN: chronic changes EXT: trace edema Results Result Diagram: 05/11/17 0627 05/13/17 0632 Results 24 hrs Laboratory Tests Test 05/12/17 12:12 05/12/17 12:29 05/12/17 17:52 05/12/17 20:14 Bedside Glucose 101 130 103 Sodium Level 140 Potassium Level 4.7 Chloride Level 109 Carbon Dioxide Level 21 Anion Gap 15 Blood Urea Nitrogen 32 H Creatinine 2.14 H Glucose Level 100 Calcium Level 9.4 Test 05/13/17 06:32 05/13/17 07:19 05/13/17 08:03 Sodium Level 138 Potassium Level 4.4 Chloride Level 107 Carbon Dioxide Level 23 Anion Gap 12 Blood Urea Nitrogen 37 H Creatinine 2.25 H Glucose Level 87 Calcium Level 9.6 Lab Scanned Report REFERENCE LAB Bedside Glucose 89 Medications Medications Current Medications Sodium Chloride (NS) 1,000 ml @ 50 mls/hr Q20H IV Last administered on 01:19; Admin Dose 50 MLS/HR; Start 05/10/17 at 02:38 Ondansetron HCl (Zofran Inj) 4 mg Q6H PRN IV NAUSEA AND/OR VOMITING; Start at 03:00 Acetaminophen (Tylenol Tab) 650 mg Q6H PRN PO PAIN LEVEL 1-3 OR FEVER; Start at 03:00 Morphine Sulfate (morphine) 2 mg Q4H PRN IV PAIN LEVEL 7-10; Start 05/10/17 at 03:00 Docusate Sodium (Colace) 100 mg Q12H PRN PO CONSTIPATION; Start 05/10/17 at 03: 00 Bisacodyl 5 mg 5 mg DAILY PRN PO CONSTIPATION; Start 05/10/17 at 03:00 Levofloxacin/ Dextrose (Levaquin 750 Mg/ D5W 150 ml (Pmx)) 150 ml @ 100 mls/hr Q48H IVPB Last administered on 05/11/17 21:12; Admin Dose 100 MLS/HR; Start at 22:00 Guaifenesin/ Dextromethorphan (Robitussin Dm Liquid Cup) 5 ml Q4H PRN PO COUGH Last administered on 05/12/17 20:26; Admin Dose 5 ML; Start 05/10/17 at 13:30 Heparin Sodium (Porcine) (Heparin (5000 Units/0.5 ml)) 5,000 unit Q8 SC Last administered on 05/13/17 06:00; Admin Dose 5,000 UNIT; Start 05/10/17 at 22:00 Amlodipine Besylate (Norvasc) 5 mg DAILY PO Last administered on 05/13/17 08: 17; Admin Dose 5 MG; Start 05/11/17 at 09:00 Aspirin (Aspirin) 81 mg DAILY PO Last administered on 05/13/17 08:17; Admin Dose 81 MG; Start 05/11/17 at 09:00 Atorvastatin Calcium (Lipitor) 10 mg QHS PO Last administered on 05/12/17 20: 17; Admin Dose 10 MG; Start 05/10/17 at 21:00 Carvedilol (Coreg) 25 mg BID PO Last administered on 05/13/17 08:17; Admin Dose 25 MG; Start 05/10/17 at 21:00 Gabapentin (Neurontin) 100 mg QHS PO Last administered on 05/12/17 20:17; Admin Dose 100 MG; Start 05/10/17 at 21:00 Hydralazine HCl (Apresoline) 50 mg Q8 PO Last administered on 05/13/17 07:00; Admin Dose 50 MG; Start 05/10/17 at 22:00 Linagliptin (Tradjenta) 5 mg DAILY PO Last administered on 05/13/17 08:17; Admin Dose 5 MG; Start 05/11/17 at 09:00 Diagnostic Test (Pha) (Accu-Chek) 1 ea 02 XX ; Start 05/11/17 at 02:00 Insulin Glargine (Lantus) 12 unit DAILY@08 SC ; Start 05/11/17 at 08:00 Diagnostic Test (Pha) (Accu-Chek) 1 ea 02 XX ; Start 05/11/17 at 02:00 Miscellaneous Information 1 ea NOTE XX ; Start 05/10/17 at 16:30 Glucose (Glutose) 15 gm Q15M PRN PO DECREASED GLUCOSE; Start 05/10/17 at 16:30 Glucose (Glutose) 22.5 gm Q15M PRN PO DECREASED GLUCOSE; Start 05/10/17 at 16: 30 Dextrose (D50w Syringe) 25 ml Q15M PRN IV DECREASED GLUCOSE; Start 05/10/17 at 16:30 Dextrose (D50w Syringe) 50 ml Q15M PRN IV DECREASED GLUCOSE; Start 05/10/17 at 16:30 Glucagon (Glucagen) 1 mg Q15M PRN IM DECREASED GLUCOSE; Start 05/10/17 at 16:30 Glucose (Glutose) 15 gm Q15M PRN BUCCAL DECREASED GLUCOSE; Start 05/10/17 at 16 :30 Famotidine (Pepcid) 20 mg DAILY PO Last administered on 9/27/17at 10:18; Admin Dose 20 MG; Start 05/11/17 at 09:00 Al Hydrox/Mg Hydrox/Simethicone (Mag-Al Plus) 30 ml Q6H PRN PO GASTROINTESTINAL UPSET; Start 05/10/17 at 21:00 JEANNA DAMICO MD May 13, 2017 11:01
--- NOTE | 2017-05-13 14:44 | PDOCDIS ---
Discharge Instructions DIAGNOSIS Discharge Diagnosis 1. Sepsis. Patient does have urine culture with Proteus mirabilis.. 2. Elevated troponins. In the setting of CKD 3. History of CAD with cardiac stent. 4. Acute on likely chronic kidney disease. CONDITION Patient Condition: Stable HOME CARE INSTRUCTIONS: Special Diet: low cholesterol low fat FOLLOW UP/APPOINTMENTS Follow-up Plan 1. Follow up with Dr. Jon Leone in one week 2. Follow up with Dr. Layo Gonzalez in one week REJI POON May 13, 2017 14:44
--- NOTE | 2017-05-13 18:29 | CONS ---
Date/Time of Note Date/Time of Note DATE: 05/13/17 TIME: 18:28 Assessment/Plan Assessment/Plan Additional Assessment/Plan 1. HARJINDER on CKD due to Sepsis and Cardiorenal syndrome 2. H/o CKD III 3. Chest pain with elevated troponin 4. Coronary artery disease 5. Hypertension Plan : pt was seen early in AM Cr slightly improved to 2.25 Continue IV levaquin to cover for infection, Renally dose all abx pt revisously has a a CKD work up so need for work up at this time follow up with me in clinic after 2 weeks will follow up Consultation Date/Type/Reason Admit Date/Time May 10, 2017 at 02:45 Initial Consult Date 05/10/17 Type of Consultation: NEPHROLOGY Referring Provider: CAROLINE KILLIAN NP 24 HR Interval Summary Free Text/Dictation doing ok, BP stable, afebrile, Cr 2.25 Exam/Review of Systems Vital Signs Vitals Vital Signs Date Time Temp Pulse Resp B/P Pulse Ox O2 Delivery O2 Flow Rate FiO2 05/13/17 12:05 79 05/13/17 11:40 98.1 19 103/56 95 05/12/17 21:26 Nasal Cannula 2.0 Results Result Diagram: 05/11/17 0627 05/13/17 0632 Results 24 hrs Laboratory Tests Test 05/12/17 20:14 05/13/17 06:32 05/13/17 07:19 05/13/17 08:03 Bedside Glucose 103 89 Sodium Level 138 Potassium Level 4.4 Chloride Level 107 Carbon Dioxide Level 23 Anion Gap 12 Blood Urea Nitrogen 37 H Creatinine 2.25 H Glucose Level 87 Calcium Level 9.6 Lab Scanned Report REFERENCE LAB Test 05/13/17 11:42 Bedside Glucose 104 PAULO CAROLINA MD May 13, 2017 18:29
--- NOTE | 2017-05-19 11:36 | DS ---
Date/Time of Note Date/Time of Note DATE: 05/19/17 TIME: 10:50 Discharge Summary Admission/Discharge Info Admit Date/Time May 10, 2017 at 02:45 Discharge Date/Time May 13, 2017 at 15:22 Discharge Diagnosis 1. Sepsis. Patient does have urine culture with Proteus mirabilis.. 2. Elevated troponins. In the setting of CKD 3. History of CAD with cardiac stent. 4. Acute on likely chronic kidney disease. Patient Condition: Stable Consults 1. DR. Layo Gonzalez 2. Dr. Jon Leone Hx of Present Illness Chief complaint: Rigors and chills, cough Patient is a 66-year-old male who presents with sudden onset, constant, moderate chills for the last 1-1/2 hours. He reports having mild headache, mild sore throat, and nonproductive cough for the last 2 days. He denies neck stiffness, abdominal pain, dysuria. He denies back pain. He reports mild shortness of breath. Patient denies any chest pain. 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 Patient was found to be septic withan appropriate antibiotics and he did have good response to it. He also was seen with elevated troponins and was seen by inventory control associate. He was noted that likely in the setting of sepsis and also his seen chronic kidney disease that troponins are falsely elevated. His echocardiogram did show him to have an ejection fraction of 65%. He is otherwise optimized medically with cardiovascular medication regimen per inventory control associate. He also was seen with acute renal insufficiency when he came to the hospital and we did renally dose his medications and his renal function did improve. During his course of stay he did improve. The plan of care was discussed with the patient and patient did verbalize understanding. On the day of discharge patient was in stable condition Discussed plan of care with Dr. Holloway [facility] Reported Medications Gabapentin* (Gabapentin*) 100 Mg Capsule, 100 MG PO QHS, #90 CAP 05/10/17 Aspirin (Aspirin) 81 Mg Chew, 81 MG PO DAILY, TAB.CHEW 05/10/17 Carvedilol* (Carvedilol*) 25 Mg Tablet, 25 MG PO BID, #60 TAB 05/10/17 Hydralazine Hcl* (Hydralazine Hcl*) 50 Mg Tab, 50 MG PO Q8, #90 TAB 05/10/17 Pantoprazole Sodium (Protonix) 40 Mg , 40 MG PO 05/10/17 Linagliptin (TRADJENTA) 5 Mg Tablet, 5 MG PO, TAB 05/10/17 Amlodipine Besylate* (Amlodipine Besylate*) 5 Mg Tablet, 5 MG PO DAILY, #30 TAB 05/10/17 Atorvastatin Calcium (Atorvastatin Calcium) 10 Mg Tablet, 10 MG PO QHS, #30 TAB 05/10/17 Follow-up Plan 1. Follow up with Dr. Jon Leone in one week 2. Follow up with Dr. Layo Gonzalez in one week Primary Care Provider Not On Staff Doctor Time spent on discharge: > 30 minutes REJI POON May 19, 2017 11:15
== END 2017-05-13 15:22 | disposition home or self-care (01) | DRG 871 ==
LOC: E/R 21:25 → MS4 05-10 02:45
PROVIDERS: ADMIT Family Medicine; ATTEND Family Medicine
DX: A41.9 Sepsis, unspecified organism (principal); I21.4 Non-ST elevation (NSTEMI) myocardial infarction; N17.9 Acute kidney failure, unspecified; E87.2 Acidosis; N39.0 Urinary tract infection, site not specified; E11.22 Type 2 diabetes mellitus with diabetic chronic kidney disease; I13.10 Hypertensive heart and chronic kidney disease without heart failure, with stage 1 through stage 4 chronic kidney disease, or unspecified chronic kidney disease; N18.3 Chronic kidney disease, stage 3 (moderate); F17.210 Nicotine dependence, cigarettes, uncomplicated; I25.10 Atherosclerotic heart disease of native coronary artery without angina pectoris; B96.4 Proteus (mirabilis) (morganii) as the cause of diseases classified elsewhere; E78.5 Hyperlipidemia, unspecified; J06.9 Acute upper respiratory infection, unspecified; I25.2 Old myocardial infarction; Z79.4 Long term (current) use of insulin; Z95.5 Presence of coronary angioplasty implant and graft; Z89.612 Acquired absence of left leg above knee
CPT/HCPCS: 36415; 71010; 78452; 80048; 80053; 80061; 81001; 82550; 82553; 82962; 83036; 83605; 83735; 83880; 84443; 84484; 85025; 85610; 85651; 85730; 86140; 87040; 87086; 87275; 87276; 87279; 87280; 87400; 93005; 93017; 93306; 96374; A9500; A9505; J1644; J1815; J1956; J2785; J7030

== ENCOUNTER 2018-09-15 07:02 | Emergency (ER) | payer MEDICARE, OTHER ==
[~2018-09-15] VITALS: Wt 85.0 kg
[~2018-09-15 07:02] MED LIST: AMLO-145 PO; ASPI-831 PO; ATOR10TA65 PO; CARV25TA79 PO; GABA100C14 PO; HYDR-3672 PO; LINA5TAB PO; PANT40SU PO
[2018-09-15] MEDS ORDERED: HYDROmorphONE 0.5 MG/0.5 ML SYG IM STA (07:07)
--- NOTE | 2018-09-15 07:43 | ERD ---
ER Documentation Chief Complaint Chief Complaint right leg pain HPI 68-year-old male presents the emergency department complaining of right foot pain. Patient states he was in his usual state of health until yesterday at which time he underwent a biopsy on his right lower extremity for a presumed malignant lesion. Patient has a history of kidney cancer. Patient states he was not prescribed any pain medication after the biopsy and since the biopsy, he has had severe pain in the right foot in the area of the biopsy radiating up his entire leg. He reports no numbness, tingling, loss of function. He reports the current pain is severe. 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 Pre-hospital vital signs were reviewed. Pre-hospital diagnostic tests were reviewed. Upon arrival, patient is concerned only of the isolated pain to his right lower extremity from the biopsy. ROS All systems reviewed and are negative except as per history of present illness. Medications Home Meds Active Scripts Oxycodone HCl/Acetaminophen (Percocet 5-325 mg Tablet) 1 Each Tablet, 1 EACH PO TID for pain, #10 TAB Prov:JOE GODOY 09/15/18 Reported Medications Gabapentin* (Gabapentin*) 100 Mg Capsule, 100 MG PO QHS, #90 CAP 05/10/17 Aspirin (Aspirin) 81 Mg Chew, 81 MG PO DAILY, TAB.CHEW 05/10/17 Carvedilol* (Carvedilol*) 25 Mg Tablet, 25 MG PO BID, #60 TAB 05/10/17 Hydralazine Hcl* (Hydralazine Hcl*) 50 Mg Tab, 50 MG PO Q8, #90 TAB 05/10/17 Pantoprazole Sodium (Protonix) 40 Mg Granpkt.dr, 40 MG PO 05/10/17 Linagliptin (TRADJENTA) 5 Mg Tablet, 5 MG PO, TAB 05/10/17 Amlodipine Besylate* (Amlodipine Besylate*) 5 Mg Tablet, 5 MG PO DAILY, #30 TAB 05/10/17 Atorvastatin Calcium (Atorvastatin Calcium) 10 Mg Tablet, 10 MG PO QHS, #30 TAB 05/10/17 Allergies Allergies: Coded Allergies: ampicillin (Verified Allergy, Unknown, 05/09/17) PMhx/Soc History of Surgery: Yes Anesthesia Reaction: No Hx Neurological Disorder: No Hx Respiratory Disorders: No Hx Cardiac Disorders: Yes (HTN) Hx Psychiatric Problems: No Hx Miscellaneous Medical Probl: No Hx Alcohol Use: No Hx Substance Use: No Hx Tobacco Use: No Smoking Status: Never smoker FmHx Supportive family at bedside. Physical Exam Vitals Vital Signs Date Temp Pulse Resp B/P (MAP) Pulse Ox O2 O2 Flow FiO2 Time Delivery Rate 09/15/18 72 20 164/97 97 Room Air 08:34 (119) 09/15/18 98.0 70 18 188/108 99 07:07 (134) Physical Exam GENERAL: Elderly, uncomfortable male HEENT: Pupils equal, round, and reactive to light. EOMI. There is no scleral icterus. NECK: C-spine is soft and supple, there is no meningismus. There is no cervical lymphadenopathy. LUNGS: Clear to auscultation bilaterally. There are no rales, wheezes or rhonchi. HEART: Regular rate and rhythm, no murmurs, clicks, rubs or gallops. ABDOMEN: Soft, non-tender, non-distended. There are bowel sounds in all four quadrants. No rebound or guarding. Patient has evidence of previous operative management EXTREMITIES: Status post left lower extremity amputation. Right lower extremity demonstrates a puncture wound in the medial aspect of the distal left leg. There is no evidence of infection. Patient has no evidence of obvious ischemia. Patient is neurovascularly intact distal to the biopsy wound. NEURO: The patient moves all four extremities with 5/5 strength. Cranial nerves II - XII are intact. Normal gait. Alert and oriented SKIN: There is no apparent rash or petechiae. HEME/LYMPHATIC: There is no evidence of excessive bruising or lymphedema. PSYCHIATRIC: The patient does not appear anxious or depressed. Result Diagram: 09/15/18 0830 Results 24 hrs Laboratory Tests Test 09/15/18 08:30 White Blood Count 11.9 10^3/ul Red Blood Count 4.09 10^6/ul Hemoglobin 12.5 g/dl Hematocrit 40.0 % Mean Corpuscular Volume 97.8 fl Mean Corpuscular Hemoglobin 30.6 pg Mean Corpuscular Hemoglobin Concent 31.3 g/dl Red Cell Distribution Width 13.4 % Platelet Count 165 10^3/UL Mean Platelet Volume 10.4 fl Immature Granulocytes % 0.300 % Neutrophils % 74.9 % Lymphocytes % 12.4 % Monocytes % 11.4 % Eosinophils % 0.7 % Basophils % 0.3 % Nucleated Red Blood Cells % 0.0 /100WBC Immature Granulocytes # 0.040 10^3/ul Neutrophils # 8.9 10^3/ul Lymphocytes # 1.5 10^3/ul Monocytes # 1.4 10^3/ul Eosinophils # 0.1 10^3/ul Basophils # 0.0 10^3/ul Nucleated Red Blood Cells # 0.0 10^3/ul Current Medications Medications Dose Sig/Dimitrios Start Time Status Last (Trade) Ordered Route PRN Stop Time Admin Dose Reason Admin 1 mg ONCE STAT 09/15/18 DC 09/15/18 Hydromorphone IM 07:07 07:21 HCl 09/15/18 07:08 (Dilaudid) Procedures/MDM Patient was taken to a room, seen and examined. Patient received pain medication. Diagnostic tests were appreciated Reevaluation: Patient's pain was improved and he remained with no evidence of significant vascular compromise. Medical decision makin-year-old male with significant ischemic risk factors presents to the emergency department with lower extremity pain that seems to be related to the biopsy. He has no clear evidence of ischemia at this time. Diag nostic workup and clinical evaluation shows no evidence of infection. After pain control, he appears improved. Patient has been recommended post procedure to have an immobilization device which the family states he has at home. I have recommended that he put this back on and have offered to further mobilization device, but he will be using the one that he was recommended by his biopsy doctor. Departure Diagnosis: Primary Impression: Pain of right leg Condition: Stable JOE GODOY Sep 15, 2018 07:43
[2018-09-15] MEDS ORDERED: OXYC-279 PO (09:00)
[2018-09-15 10:17] VITALS: PULSE 69; RESP 20
[2018-09-15 10:26] VITALS: BP 162/94
== END 2018-09-15 10:20 | disposition home or self-care (01) ==
LOC: E/R 07:02
DX: M79.604 Pain in right leg (principal); I10 Essential (primary) hypertension; Z79.82 Long term (current) use of aspirin; Z85.528 Personal history of other malignant neoplasm of kidney
CPT/HCPCS: 36415; 80048; 85025; 93971; 96372; 99285; J1170